=== PATIENT | female | born 1945 | race Caucasian/White ===

== ENCOUNTER 2018-02-20 06:24 | Inpatient (IN) ==
--- NOTE | 2018-02-19 16:55 | Discharge Summary ---
Date of Encounter: 02/23/18 Time of Encounter: 12:40 - Discharge Diagnosis (1) Rotator cuff arthropathy Priority: Primary Status: Chronic Qualifiers: Laterality: right Qualified Code(s): M12.811 - Other specific arthropathies, not elsewhere classified, right shoulder (2) Osteoarthritis of right shoulder Priority: Primary Status: Chronic Qualifiers: Osteoarthritis type: unspecified Qualified Code(s): M19.011 - Primary osteoarthritis, right shoulder (3) Status post reverse arthroplasty of right shoulder Priority: Primary Status: Acute (4) HTN (hypertension) Priority: Secondary Status: Chronic Qualifiers: Hypertension type: unspecified Qualified Code(s): I10 - Essential (primary) hypertension (5) Anemia Priority: Secondary Status: Chronic Qualifiers: Anemia type: unspecified type Qualified Code(s): D64.9 - Anemia, unspecified (6) Gout Priority: Secondary Status: Chronic Qualifiers: Gout site: unspecified site Gout etiology: unspecified cause Chronicity: unspecified Qualified Code(s): M10.9 - Gout, unspecified (7) Breast cancer Priority: Secondary Status: Chronic Qualifiers: Breast location: unspecified site of breast Estrogen receptor status: unspecified Patient sex: female Laterality: unspecified laterality Qualified Code(s): C50.919 - Malignant neoplasm of unspecified site of unspecified female breast (8) Barretts esophagus Priority: Secondary Status: Chronic Qualifiers: Hastings's esophagus type: with dysplasia of unspecified degree Qualified Code(s): K22.719 - Hastings's esophagus with dysplasia, unspecified; K22.71 - Hastings's esophagus with dysplasia (9) Asthma Priority: Secondary Status: Chronic Qualifiers: Asthma severity: unspecified severity Asthma persistence: unspecified Asthma complication type: unspecified Qualified Code(s): J45.909 - Unspecified asthma, uncomplicated (10) Osteoporosis Priority: Secondary Status: Chronic Qualifiers: Osteoporosis type: unspecified Presence of current pathological fracture: unspecified Qualified Code(s): M81.0 - Age-related osteoporosis without current pathological fracture - Hospital Course Hospital course: Ms. Lazo is a 73 year old female POD#4 Date of procedure: 02/20/18 Pre-op diagnosis: Right shoulder cuff tear arthropathy Post-op diagnosis: same Procedure: Total Shoulder Replacment Reverse, right Patient progressed well. Patient discharged to inpt rehab. - Time Spent with Patient Total time spent providing and/or coordinating discharge services: - Discharge Medications Home Medications: Allopurinol [Zyloprim 300 MG] 300 mg PO DAILY 03/27/15 [History] Gabapentin [Neurontin] 300 tab PO TID 03/27/15 [History] Omeprazole [PriLOSEC] 20 mg PO DAILY 03/27/15 [History] Albuterol Sulfate [Albuterol Inhaler] 90 mcg IH Q4HR PRN 04/08/15 [History] Loratadine [Allergy Relief] 10 mg PO DAILY PRN 06/28/16 [History] Cholecalciferol (D-3) [Vitamin D] 5,000 unit PO DAILY 08/15/17 [History] Docusate Sodium [Colace] 100 mg PO BID 5 Days #10 capsule 02/20/18 [Rx] FLUoxetine HCl [Fluoxetine HCl] 10 mg PO DAILY 02/20/18 [History] Lisinopril/Hydrochlorothiazide [Zestoretic 20-25 mg Tablet] 1 tab PO DAILY 02/20/18 [History] OxyCODONE Immed Rel [Roxicodone 5 MG] 5 mg PO Q6HR PRN 7 Days #28 tablet 02/20/18 [Rx] Tramadol HCl [Ultram] 50 tab PO BID PRN 02/20/18 [History] Allergies/Adverse Reactions: Allergy/AdvReac Type Severity Reaction Status Date / Time No Known Allergies Allergy Verified 02/20/18 07:40 Date of admission: 02/20/18 Primary care physician: Alexa Morgan MD Discharging clinician: Ronald Jameson Anticipated date of discharge: 02/23/18 - VTE Documentation of Mechanical Device: Venous foot pump, device - Patient Status Disposition: Transfer SNF Condition: Fair Functional capacity at discharge: independent ambulation Overall status at discharge: patient is progressing back to baseline - Discharge Instructions Follow Up With: Alexa Morgan MD [Primary Care Provider] - Additional Instructions: Discharge Instructions: Total Shoulder Please call [facility] ([phone]), your Primary Care Physician, or report to the Emergency Room if you have any of the following symptoms: Nausea, vomiting, fever greater that 101.5, swelling, chest pain, shortness of breath, increased pain/redness/drainage/odor for your incision site, numbness/tingling, or any other concerning symptoms. ACTIVITY: Always keep your arm in the sling. Do not raise your arm away from your body. Do not use your arm to help with getting in or out of bed. No weight bearing permitted. Only perform those exercises given to you by your therapist. Incentive Spirometer 10 times an hour. MEDICATIONS: Upon discharge resume your home medications. Take all the medications as prescribed. Take a stool softener if taking narcotic pain medications. Stool softeners are only effective if you drink enough fluids. Drink 6-8 glass of water or fluids a day, unless this is not allowed for another health problem. Despite using stool softeners, if you haven't had a bowel movement in 3 days, please switch to a gentle laxative. Gentle laxatives are sold over the counter. You should have a bowel movement within 24 hours, if not call the office. You will be discharged from the hospital with a prescription for pain medication. You are encouraged to decrease the use of narcotic pain medication as tolerated. Should you require a refill, please call the office. [facility] prescribes narcotic pain medication for only 4-6 weeks after surgery. If you require pain medication beyond this time period, you may be referred to your Primary Care Physician or to the Pain Clinic for further evaluation. Plan ahead for refills on pain medication as many narcotics either need to be picked up at the office or mailed. It is best to call 48-72 hours in advance of needing a prescription refill so you don't run out of medication. To help control the post-operative pain, you may take NSAIDs (Aleve,Advil, Motrin, Ibuprofen, Naprosyn) or Tylenol as prescribed on the bottle in addition to the pain medication. WOUND CARE: Leave the dressing on for 7-10 days. You may change the dressing if it becomes saturated greater than 50%. Do not get the dressing wet at anytime. Wash your hands with antibacterial soap, rinse and dry prior to any wound care. If you have tori the visiting nurse or rehab facility can remove the stapes 10-14 days after surgery and place steri-strips across the wound. Leave the steri-strips in place until they fall off on their own. You may let water from the shower run on top of the steri-strips. If you do not have a visiting nurse or rehab facility, you will need to return to the office at 10-14 days for the tori to be removed. If you have itching or redness around the dressing call the office. FOLLOW-UP: Please follow up with your surgeon in the orthopedic clinic, as scheduled - Diet and Activity Activity: as per physical therapy Diet: advance to your usual diet
--- NOTE | 2018-02-20 06:42 | History & Physical Report ---
Date of Encounter: 02/20/18 Time of Encounter: 06:41 24 Hour HP Update - Instructions Instructions: If the History and Physical is less than 30 days old and was completed prior to A.M. admission and or procedure and has NOT been updated on calendar day of procedure please complete this update prior to performing procedure. - Update Patient reports changes in Medical Condition: No Changes in examination, assessment, or condition: No Changes in Medication: No Preop tests/diagnostics Reviewed: Yes Surgery Remains Indicated: Yes Consent for Planned Operative Procedure(s) Verified: Yes - Pre-Operative Checklist Preoperative Checklist Indicated: No Prophylactic Antibiotic Ordered: Yes Is VTE Prophylaxis Indicated?: Yes
[2018-02-20] MEDS ORDERED: Ethanol\\Acetic Acid\\Na Ace\\Ben 1,000 ML IRRIG.SOLN IR ONE (06:53)
[2018-02-20] MEDS ORDERED: CeFAZolin Syr 2,000MG/20 ML 2,000 MG/20 ML SYRINGE IVPB ONE (07:01)
[2018-02-20] MEDS ORDERED: Albuterol 2.5 MG/3 ML NEBULIZER IH ONE (07:01)
[2018-02-20] MEDS ORDERED: Acetaminophen IV 1,000 MG/100 ML INFUS..BTL ONE (07:23)
[2018-02-20] MEDS ORDERED: ROPIVACAINE HCL/PF 0.5% 30 ML VIAL ONE (07:23)
[2018-02-20] MEDS ORDERED: KETAMINE HCL 50 MG/ML SYRINGE IV ONE (07:23)
[2018-02-20] MEDS ORDERED: *HR* Propofol 200 MG/20 ML VIAL IVP ONE (07:29)
[2018-02-20] MEDS ORDERED: *HR* Succinylcholine 200 MG/10 ML VIAL IVP ONE (07:30)
[2018-02-20] MEDS ORDERED: Ondansetron 4 MG/2 ML VIAL IVP ONE (07:31)
[2018-02-20] MEDS ORDERED: *HR* Promethazine 25 MG/ML VIAL IVP PRN (07:31)
[2018-02-20] MEDS ORDERED: *HR* Meperidine 25 MG/ML SYRINGE IVP PRN (07:31)
[2018-02-20] MEDS ORDERED: *HR* OxyCODONE Immed Rel 5 MG TABLET PO PRN (07:31)
[2018-02-20] MEDS: Ringers Solution, Lactated 1,000 ML IVC SCH ×3 (07:34→11:41)
--- NOTE | 2018-02-20 07:42 | Anesthesia Evaluation PreOp ---
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 History: Other (depression) Other Medical History: Other (newsome's L breast ca) Anesthesia History: No Prior Anesthetic Complications, Past Anesthesia (knee replacement) Alcohol Use: none Drug use: none Medications and Allergies Allopurinol [Zyloprim 300 MG] 300 mg PO DAILY 03/27/15 [History] Ferrous Sulfate 325 mg PO DAILY 03/27/15 [History] Gabapentin [Neurontin] 300 tab PO HS 03/27/15 [History] Omeprazole [PriLOSEC] 20 mg PO DAILY 03/27/15 [History] Albuterol Sulfate [Albuterol Inhaler] 90 mcg IH Q4HR PRN 04/08/15 [History] FLUoxetine HCl [PROzac] 20 mg PO DAILY 04/08/15 [History] Loratadine [Allergy Relief] 10 mg PO DAILY PRN 06/28/16 [History] Ibuprofen [Motrin] 400 mg PO Q6HR PRN 04/08/17 [History] Lisinopril-HCTZ 10-12.5 [Prinzide 10-12.5] 0.5 tab PO DAILY 04/08/17 [History] Letrozole [Femara] 2.5 mg PO DAILY #30 tablet 08/11/17 [Rx] Cholecalciferol (D-3) [Vitamin D] 5,000 unit PO DAILY 08/15/17 [History] Tramadol HCl [Ultram] 1 - 2 tab PO TID PRN 30 Days #180 tablet 11/11/17 [Rx] Allergy/AdvReac Type Severity Reaction Status Date / Time No Known Allergies Allergy Verified 02/20/18 07:40 - Meds/Allergy Pre-op Review Medications Reviewed: Yes Allergies Reviewed: Yes Beta Blockers on Current Med List: No Anesthesia Results - Labs Laboratory Tests 11/23/17 02/16/18 02/16/18 08:14 11:42 11:42 WBC 9.5 Hgb 14.2 Hct 43.5 Plt Count 235 PT 11.4 INR 1.0 APTT 31.7 Sodium Potassium Chloride Carbon Dioxide BUN Creatinine Glucose 91 02/16/18 11:42 WBC Hgb Hct Plt Count PT INR APTT Sodium 138 Potassium 3.7 Chloride 100 Carbon Dioxide 28 BUN 26 H Creatinine 0.91 Glucose - Imaging EKG: report reviewed ( Interpretive Statements SINUS RHYTHM WITH SINUS ARRHYTHMIA Electronically Signed On 02-17-2018 9:19:47 EST by Gunner Ray) Anesthesia Exam O2 Sat Height 1.5 m Height 1.5 m Weight 77.564 kg Weight 77.564 kg O2 Sat by Pulse Oximetry 92 O2 Sat by Pulse Oximetry 92 O2 Sat by Pulse Oximetry 92 Vital Signs Temp Pulse Resp BP Pulse Ox 98.0 F 108 18 130/98 92 02/20/18 06:43 02/20/18 06:43 02/20/18 06:43 02/20/18 06:43 02/20/18 06:43 Weight: 77kg NPO (# of Hours): >8 - HEENT Pupil (Motor): Pupils equal, EOMI Mallampati: III (overbite) Teeth: Normal Oral Opening: Greater than 3 - 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
[2018-02-20] MEDS ORDERED: Ringers Solution, Lactated 1,000 ML IVC SCH (07:45)
[2018-02-20] MEDS ORDERED: Tranexamic Acid 1,000 MG/10 ML VIAL ONE (08:16)
[2018-02-20] MEDS ORDERED: Dexamethasone 4 MG/ML VIAL ONE (08:19)
[2018-02-20] MEDS ORDERED: Ondansetron 4 MG/2 ML VIAL ONE (08:19)
[2018-02-20] MEDS ORDERED: *HR* PHENYLEPHRINE 1,000 MCG/10 ML SYRINGE IVP ONE (08:24)
--- NOTE | 2018-02-20 08:30 | Anesthesia Procedures ---
Date of Encounter: 02/20/18 Time of Encounter: 07:55 Procedures: Anesthesia - Nerve Block Procedure Date: 02/20/18 Time: 07:55 Allergies/Adv Reactions: nka Pre-op Diagnosis: right shoulder rc arthropathy Surgical Procedure: right rev TSA Checklist: Correct Patient Identifier, Correct procedure, History checked Correct side: Right Blood Thinner: No Monitor Applied: EKG, BP, Pulse Oximetry Supplemental Oxygen via Nasal Cannula (L/min): 8 (FM) Indication: Post Op Analgesia Pre-op Neuro Deficits: No Block Type: Supraclavicular Catheter placed: No Sterile Technique: Yes Ultrasound used: Yes Anatomy identified: Yes Visual spread of Local: Yes Neuro Stimulation: Yes Nerve Stimulator Range: 0.2 - 0.4 mA Blood on Needle Aspiration: No Smooth Injection of Local: Yes Pain with Injection of Local: No Prep: Chlorhexadine Needle: 22 x 50 mm Stimuplex (echogenic) Local: Ropivacaine, Other (decadron 8mg) Volume (cc): 30 Number of Attempts: 1 Complications: None/effective block Vitals: Vital Signs/O2 Sat/Glucose, Most Recent Temp Pulse Resp BP Pulse Ox 98.0 F 111 18 154/108 100 02/20/18 07:23 02/20/18 08:00 02/20/18 07:23 02/20/18 08:00 02/20/18 08:00 Comments: propofol 50mg
--- NOTE | 2018-02-20 08:53 | Orthopedic Operative Note ---
Date of procedure: 02/20/18 Pre-op diagnosis: Right shoulder cuff tear arthropathy Post-op diagnosis: same Procedure: Procedure: Total Shoulder Replacment Reverse, right Estimated blood loss: 50 cc Hardware: Metal and polyethylene replacement: Arthrex 24, +2 , 25 mm screw glenoid baseplate, 4 locking 5.5 screw, 36+4 glenosphere, 8 apex humeral stem, poly insert 3 Exam Under anesthesia: Full motion no instability Procedural Notes: Irreparable tear rotator cuff Operative procedure: The patient was brought to the operating room and placed on the operating room table. After general anesthesia was administered the operative shoulder was examined. Findings were noted. The patient was placed in the modified beachchair position. All pressure points were padded appropriately. And the head was stabilized in the neutral position. The operative extremity was prepped and draped in the sterile surgical fashion. The patient received IV antibiotics prior to skin incision. A standard deltopectoral approach was made to the operative shoulder. Incision was made to the skin and subcutaneous tissue,hemo stasis was obtained with Bovie cautery. Using careful blunt dissection the cephalic vein was identified and mobilized medially. The deltopectoral interval was developed and the clavipectoral fascia was incised. The subscap was released off the lesser tuberosity and tagged with #2 FiberWire suture subscap was irreparable. The humerus was dislocated patient noted to have irreparable tear supraspinatus tendon, and the humeral cut was made along the anatomic neck. Anterior and posterior Bankart retractors were placed to expose the glenoid. The glenoid guide was seated and the centering hole was made. It was reamed with the appropriate reamer. The 24, +2, 25 mm screw baseplate was seated and secured with 4 locking 5.5 screw. The baseplate was irrigated and dried and the 36+4 Glenosphere was seated and secured with the José taper. The José taper was tested and found to be secure, glenosphere fixation was secondarily secured with the central screw. The humerus was redislocated and prepared with the diaphyseal reamers, followed by a broaching process up to the appropriate size 8 apex in the patient's anatomic version. The metaphyseal reamer was then utilized. Trial reduction found the shoulder to be relocatable. Trial components were removed and 8 apex. stem was impacted in place in the patient's anatomic version. Trial reduction found the shoulder to be relocatable and stable with the appropriate 3 Kat. Trial component was removed and the real implant was seated and secured the shoulder was reduced. The shoulder had excellent motion and excellent stability and no evidence of dislocation. The deep tissue was irrigated with pulse irrigation. The PA close the shoulder. The deltopectoral interval was closed with a running #1 PDS suture, subcutaneous tissue was irrigated and closed with 0 PDS suture, the skin was closed with Dermabond. The patient was placed in a sterile dressing, abduction brace and extubated. The patient was then transferred to the recovery room in stable condition. Anesthesia: GETA Surgeon: Ronald Jameson Was there an emergency room physician assistant present: Yes Dairy Frozen Manager: Johana Calderon Estimated blood loss (cc): 50 Condition: stable Disposition: PACU
[2018-02-20] MEDS: *HR* HYDROmorphone (PF) 1 MG/ML SYRINGE IVP PRN ×3 (09:33→09:53)
[2018-02-20 09:56] LABS: Hematocrit 37.8 % (35.3-44.9)
[2018-02-20 09:59] LABS: Hemoglobin 12.4 g/dL (11.5-15.4)
--- NOTE | 2018-02-20 10:06 | Anesthesia Evaluation Post Op ---
Date of Encounter: 02/20/18 Time of Encounter: 10:05 - Vital Signs Vital Signs: Selected Entries 02/20/18 09:40 02/20/18 09:50 Temperature 97.7 F Pulse Rate 103 Respiratory Rate 18 Blood Pressure 135/82 O2 Sat by Pulse Oximetry 94 - Lungs Lungs: Clear Ascult./Percussion - Airway Airway: Non-obstructed - Cardiovascular Regular Rate - Mental Status Mental Status: Alert & Oriented, Answers Appropriately - Pain Pain Scale: 3 Pain Scale used: Numeric (1 - 10) - Nausea Vomiting Nausea Vomiting: Not Present - Hydration Hydration: Tolerates oral liquids - Discharge PostOp Status: Transfer Patient to floor
[2018-02-20] MEDS ORDERED: traMADol 50 MG TABLET PO PRN (10:55)
[2018-02-20] MEDS ORDERED: Naloxone 0.4 MG/ML INJ IVP PRN (10:55)
[2018-02-20] MEDS ORDERED: MOM Conc 10 ML UD.LIQ PO PRN (10:55)
[2018-02-20] MEDS ORDERED: Ondansetron 4 MG/2 ML VIAL IVP PRN (10:55)
[2018-02-20] MEDS ORDERED: Sennosides 8.6 MG TABLET PO PRN (10:55)
[2018-02-20] MEDS ORDERED: Loratadine 10 MG TABLET PO PRN (10:55)
[2018-02-20] MEDS ORDERED: Temazepam 15 MG CAPSULE PO PRN (10:55)
[2018-02-20] MEDS: Cholecalciferol (D-3) 1,000 UNIT TABLET PO SCH (11:37)
[2018-02-20] MEDS: Gabapentin 300 MG CAPSULE PO SCH ×3 (11:37→20:27)
[2018-02-20] MEDS: Letrozole 2.5 MG TABLET PO SCH (15:21)
[2018-02-20] MEDS: FLUoxetine HCl 10 MG CAPSULE PO SCH (15:21)
[2018-02-20] MEDS: *HR* Enoxaparin 30 MG/0.3 ML SYRINGE SQ SCH (17:32)
[2018-02-20] MEDS ORDERED: *HR* Enoxaparin 30 MG/0.3 ML SYRINGE SQ SCH (18:00)
[2018-02-20] MEDS ORDERED: *HR* Metoprolol 5 MG/5 ML VIAL IVP ONE ×2 (18:53→18:57)
[2018-02-21] MEDS: *HR* OxyCODONE Immed Rel 5 MG TABLET PO PRN ×2 (04:17→09:48)
[2018-02-21] MEDS: *HR* Enoxaparin 30 MG/0.3 ML SYRINGE SQ SCH ×2 (05:21→17:58)
[2018-02-21 07:11] LABS: Hemoglobin 11.8 g/dL (11.5-15.4)
[2018-02-21 07:23] LABS: BUN/Creatinine Ratio 29 (6-26); Blood Urea Nitrogen 24 mg/dL (8-23); Calcium 9.2 mg/dL (8.6-10.3); Carbon Dioxide 29 mEq/L (23-29); Chloride 102 mEq/L (98-107); Glucose 128 mg/dL (70-105); Osmolality,Calculated 292 (280-300); Potassium 3.9 mEq/L (3.5-5.1); Sodium 138 mEq/L (136-145); eGFR For Non-African Americans > 60 (> 60)
[2018-02-21] MEDS: Cholecalciferol (D-3) 1,000 UNIT TABLET PO SCH (09:48)
[2018-02-21] MEDS: Gabapentin 300 MG CAPSULE PO SCH ×3 (09:48→21:05)
[2018-02-21] MEDS: Letrozole 2.5 MG TABLET PO SCH (09:48)
[2018-02-21] MEDS: FLUoxetine HCl 10 MG CAPSULE PO SCH (09:48)
--- NOTE | 2018-02-21 14:10 | Orthopedics Progress Note ---
Date of Encounter: 02/21/18 Time of Encounter: 14:07 Subjective Principal diagnosis: Right total shoulder arthroplasty Interval history: Patient is reporting moderate pain Patient also reports that she is unable to take care of herself at home and would like to be referred to [facility] Physical exam: Right shoulder dressings are clean dry intact, sling in place. Patient has good motion of digits, with no swelling, no numbness or tingling. Radial pulse 2+ Assessment: Postoperative day #1 status post right total shoulder arthroplasty. Stable. Significant pain Plan: Continue analgesics We will have certified social workers in health care involvement for possible inpatient rehabilitation at [facility] Objective Vital signs: Vital Signs Temp Pulse Resp BP Pulse Ox 02/21/18 10:58 98.1 F 102 20 125/72 95 02/21/18 06:23 97.6 F 97 18 143/98 99 02/21/18 04:35 97.9 F 94 15 139/93 97 02/20/18 22:34 97.9 F 98 16 138/90 96 02/20/18 20:28 96 02/20/18 19:04 98.1 F 170 14 103/73 95 02/20/18 14:32 98.2 F 106 15 106/71 94 Intake and Output 02/20/18 02/21/18 02/21/18 23:59 07:59 15:59 Intake Total 100 / 100 1050 / 1050 420 / 420 Output Total 500 / 500 Balance 100 / 100 550 / 550 420 / 420 Intake: IV Fluids 100 / 100 1050 / 1050 Lactated Ringers 1,000 ML @ 75 950 / 950 mls/hr IVC .[id number] ISAI Rx#: [id number] Ancef 2,000 MG In 0.9 % Sodium 100 / 100 100 / 100 Chloride 100 ML @ 200 mls/hr IVPB Q8HR ISAI Rx#:[id number] Oral 420 / 420 Output: Urine 500 / 500 Other: Meal Lunch Percent of Meal Consumed 50% # Voids 1 Weight 78.6 kg Patient Weight 02/21/18 23:59 Weight 78.6 kg - Labs CBC & BMP: 02/21/18 06:08 02/21/18 06:08 Labs: Abnormal lab results BUN 24 mg/dL (8-23) H 02/21/18 06:08 BUN/Creatinine Ratio 29 (6-26) H 02/21/18 06:08 Glucose 128 mg/dL (70-105) H 02/21/18 06:08 - VTE Documentation of Mechanical Device: Intermittent pneumatic compression device Consult Discharge Plan - Plan Referrals: Alexa Morgan MD [Primary Care Provider] -
[2018-02-21] MEDS: *HR* OxyCODONE/APAP 5/325 TABLET PO PRN ×2 (15:13→21:05)
[2018-02-22] MEDS: *HR* OxyCODONE/APAP 5/325 TABLET PO PRN ×3 (03:23→12:30)
[2018-02-22] MEDS: *HR* Enoxaparin 30 MG/0.3 ML SYRINGE SQ SCH ×2 (05:37→18:17)
--- NOTE | 2018-02-22 06:17 | Orthopedics Progress Note ---
Date of Encounter: 02/22/18 Time of Encounter: 06:17 Subjective Principal diagnosis: Right total shoulder arthroplasty Interval history: Patient was seen this morning doing well without complaints. Afebrile vital signs stable. Operative extremity: Neurovascularly intact Dressing clean dry and intact Calves nontender Assessment and plan: Continue with postoperative care Plan for discharge today Objective Vital signs: Vital Signs Temp Pulse Resp BP Pulse Ox 02/22/18 03:05 97.7 F 104 14 126/73 96 02/21/18 23:37 98.1 F 99 16 118/80 96 02/21/18 19:44 97.7 F 104 14 133/73 93 02/21/18 15:18 97.9 F 102 16 120/80 91 02/21/18 10:58 98.1 F 102 20 125/72 95 02/21/18 06:23 97.6 F 97 18 143/98 99 Intake and Output 02/21/18 02/21/18 02/22/18 15:59 23:59 07:59 Intake Total 420 / 420 0 / 0 0 / 0 Balance 420 / 420 0 / 0 0 / 0 Intake: Oral 420 / 420 0 / 0 0 / 0 Other: Meal Lunch Percent of Meal Consumed 50% # Voids 2 1 1 Weight 78.74 kg Patient Weight 02/22/18 23:59 Weight 78.74 kg - Labs CBC & BMP: 02/21/18 06:08 02/21/18 06:08 Labs: Abnormal lab results BUN 24 mg/dL (8-23) H 02/21/18 06:08 BUN/Creatinine Ratio 29 (6-26) H 02/21/18 06:08 Glucose 128 mg/dL (70-105) H 02/21/18 06:08 - VTE Documentation of Mechanical Device: Intermittent pneumatic compression device Consult Discharge Plan - Plan Referrals: Alexa Morgan MD [Primary Care Provider] -
[2018-02-22] MEDS: Letrozole 2.5 MG TABLET PO SCH (07:44)
[2018-02-22] MEDS: Gabapentin 300 MG CAPSULE PO SCH ×3 (07:44→19:49)
[2018-02-22] MEDS: Cholecalciferol (D-3) 1,000 UNIT TABLET PO SCH (07:44)
[2018-02-22] MEDS: FLUoxetine HCl 10 MG CAPSULE PO SCH (07:44)
[2018-02-22 07:54] LABS: Hematocrit 38.8 % (35.3-44.9); Hemoglobin 12.5 g/dL (11.5-15.4)
[2018-02-22 08:07] LABS: BUN/Creatinine Ratio 30 (6-26); Blood Urea Nitrogen 23 mg/dL (8-23); Calcium 9.2 mg/dL (8.6-10.3); Carbon Dioxide 32 mEq/L (23-29); Chloride 102 mEq/L (98-107); Glucose 91 mg/dL (70-105); Osmolality,Calculated 293 (280-300); Potassium 3.6 mEq/L (3.5-5.1); Sodium 140 mEq/L (136-145); eGFR For Non-African Americans > 60 (> 60)
--- NOTE | 2018-02-22 12:00 | Event Note ---
Date of Encounter: 02/22/18 Time of Encounter: 11:30 PCR- POD#2 PCR - Patient seen at bedside. Family at bedside. A&Ox3 Dressing and incision c/d/i Zipline intact No calf tenderness, erythema, or warmth. Neurovascularly intact b/l LE. Labwork and medications reviewed. Pain control: Adequate Participating in PT. All questions and concerns addressed. Educated on use of incentive spirometer, ambulation, and hydration. Patient educated on post-operative restrictions and care. Addressed: see above. D/C plan: [facility] tomorrow
--- NOTE | 2018-02-22 12:00 | Physician Discharge Referral ---
ExtendedCare Referral Info Transfer To: In Rehab Provider in Charge: Dr. Ronald Jameson - Diagnosis (1) Rotator cuff arthropathy Priority: Primary Status: Chronic (2) Osteoarthritis of right shoulder Priority: Primary Status: Chronic (3) Status post reverse arthroplasty of right shoulder Priority: Primary Status: Acute (4) HTN (hypertension) Priority: Secondary Status: Chronic (5) Anemia Priority: Secondary Status: Chronic (6) Gout Priority: Secondary Status: Chronic (7) Breast cancer Priority: Secondary Status: Chronic (8) Barretts esophagus Priority: Secondary Status: Chronic (9) Asthma Priority: Secondary Status: Chronic (10) Osteoporosis Priority: Secondary Status: Chronic Expected Duration of Placement: less than 30 days Prognosis: Good Aware of Diagnosis: Patient, Family Aware of Prognosis: Patient, Family - Transfer Medications Home Medications: Allopurinol [Zyloprim 300 MG] 300 mg PO DAILY 03/27/15 [History] Gabapentin [Neurontin] 300 tab PO TID 03/27/15 [History] RX: Omeprazole [PriLOSEC] 20 mg PO DAILY 03/27/15 [History] Albuterol Sulfate [Albuterol Inhaler] 90 mcg IH Q4HR PRN 04/08/15 [History] Loratadine [Allergy Relief] 10 mg PO DAILY PRN 06/28/16 [History] RX: Letrozole [Femara] 2.5 mg PO DAILY #30 tablet 08/11/17 [Rx] Cholecalciferol (D-3) [Vitamin D] 5,000 unit PO DAILY 08/15/17 [History] FLUoxetine HCl [Fluoxetine HCl] 10 mg PO DAILY 02/20/18 [History] Lisinopril/Hydrochlorothiazide [Zestoretic 20-25 mg Tablet] 1 tab PO DAILY 1 [History] RX: Docusate Sodium [Colace] 100 mg PO BID 5 Days #10 capsule 02/20/18 [Rx] RX: OxyCODONE Immed Rel [Roxicodone 5 MG] 5 mg PO Q6HR PRN 7 Days #28 tablet 02/20/18 [Rx] RX: Tramadol HCl [Ultram] 50 tab PO BID PRN 02/20/18 [History] Allergies/Adverse Reactions: Allergy/AdvReac Type Severity Reaction Status Date / Time No Known Allergies Allergy Verified 02/20/18 07:40 - Respiratory Orders Smoking Cessation: Smoking cessation has been advised. For more information, call the [place] Tobacco Quit Line at 3-004-CHBX-NOW. - Ancillary Orders May use pressure relief devices daily prn, May go on RAISSA w/family/respon republican w/meds at nurse discretion PRN, May consult with Dentist, Monomer Purification Operator, Sales Development Representative PRN - Mobility Orders Chair, Ambulate - Rehabiliation Orders Rehab Potential: Good Rehab Orders: Evaluation for Physical Therapy, Evaluation for Occupational Therapy Other: PT/OT. NWB to affected upper extremity. Follow Shoulder Precautions x 6 weeks. Stay in brace during activity and at night. Remove brace during exercises. ICE and elevate extremity frequently throughout the day. - Treatments Skin tear care topically daily PRN per policy List/Other: Opsite placed. Keep dressing intact until first follow up appointment. If greater than 50% saturated, notify office, remove dressing and place appropriate dressing back in place. Leave Zipline intact. Opsite dressing is water resistant, not water-proof. OK to shower, but do not get dressing wet. - Diet Orders Regular CERTIFICATION: I certify that the transfer of the above named patient to an Extended Care Facility is necessary for the continuing treatment of the diagnosis listed. The above information is true and accurate reflection of patient's current condition. Confidential - Redisclosure prohibited without a patient's written consent.
[2018-02-22] MEDS: *HR* OxyCODONE Immed Rel 5 MG TABLET PO PRN (18:17)
[2018-02-22] MEDS: Ringers Solution, Lactated 1,000 ML IVC SCH ×2 (19:46→19:47)
[2018-02-23] MEDS: *HR* Enoxaparin 30 MG/0.3 ML SYRINGE SQ SCH (05:44)
--- NOTE | 2018-02-23 08:34 | Orthopedics Progress Note ---
Date of Encounter: 02/23/18 Time of Encounter: 08:34 Subjective Principal diagnosis: Right total shoulder arthroplasty Interval history: Patient was seen this morning doing well without complaints. Afebrile vital signs stable. Operative extremity: Neurovascularly intact Dressing clean dry and intact Calves nontender Assessment and plan: Continue with postoperative care Plan for discharge today Objective Vital signs: Vital Signs Temp Pulse Resp BP Pulse Ox 02/23/18 06:38 98.9 F 103 14 126/81 94 02/23/18 03:36 98.3 F 106 15 136/93 94 02/22/18 23:00 98.1 F 112 16 132/82 90 02/22/18 19:56 90 02/22/18 18:23 97.5 F L 110 14 115/76 90 02/22/18 15:40 98.5 F 64 16 115/68 93 02/22/18 10:52 98.2 F 98 16 105/69 93 Intake and Output 02/22/18 02/23/18 02/23/18 23:59 07:59 15:59 Intake Total 100 / 100 400 / 400 Balance 100 / 100 400 / 400 Intake: Oral 100 / 100 400 / 400 Other: Meal Dinner Percent of Meal Consumed 75% Stool Size Small Stool Consistency loose # Voids 1 1 Weight 80.1 kg Patient Weight 02/23/18 23:59 Weight 80.1 kg - Labs CBC & BMP: 02/22/18 07:11 02/22/18 07:11 Labs: Abnormal lab results Carbon Dioxide 32 mEq/L (23-29) H 02/22/18 07:11 BUN/Creatinine Ratio 30 (6-26) H 02/22/18 07:11 - VTE Documentation of Mechanical Device: Intermittent pneumatic compression device Consult Discharge Plan - Plan Referrals: Alexa Morgan MD [Primary Care Provider] -
[2018-02-23] MEDS: FLUoxetine HCl 10 MG CAPSULE PO SCH (08:49)
[2018-02-23] MEDS: Cholecalciferol (D-3) 1,000 UNIT TABLET PO SCH (08:49)
[2018-02-23] MEDS: Letrozole 2.5 MG TABLET PO SCH (08:49)
[2018-02-23] MEDS: Gabapentin 300 MG CAPSULE PO SCH (08:49)
[2018-02-23] MEDS: *HR* OxyCODONE Immed Rel 5 MG TABLET PO PRN (08:49)
[2018-02-23 11:42] LABS: Hemoglobin 11.6 g/dL (11.5-15.4)
[2018-02-23 11:45] VITALS: BP 107/76
[2018-02-23 12:03] LABS: BUN/Creatinine Ratio 32 (6-26); Blood Urea Nitrogen 22 mg/dL (8-23); Calcium 9.2 mg/dL (8.6-10.3); Carbon Dioxide 30 mEq/L (23-29); Chloride 100 mEq/L (98-107); Glucose 107 mg/dL (70-105); Osmolality,Calculated 288 (280-300); Potassium 3.4 mEq/L (3.5-5.1); Sodium 137 mEq/L (136-145); eGFR For Non-African Americans > 60 (> 60)
== END 2018-02-23 13:36 | DRG 483 ==
LOC: SAMDAY 06:24 → 3NENU 10:49
PROVIDERS: ADMIT Orthopaedic Surgery; ATTEND Orthopaedic Surgery

== ENCOUNTER 2018-08-14 06:20 | Inpatient (IN) ==
[2018-08-14] MEDS ORDERED: Albuterol 2.5 MG/3 ML NEBULIZER IH ONE (06:49)
[2018-08-14] MEDS ORDERED: CeFAZolin Syr 2,000MG/20 ML 2,000 MG/20 ML SYRINGE IVPB ONE (06:49)
--- NOTE | 2018-08-14 06:51 | History & Physical Report ---
Date of Encounter: 08/14/18 Time of Encounter: 06:51 24 Hour HP Update - Instructions Instructions: If the History and Physical is less than 30 days old and was completed prior to A.M. admission and or procedure and has NOT been updated on calendar day of procedure please complete this update prior to performing procedure. - Update Patient reports changes in Medical Condition: No Changes in examination, assessment, or condition: No Changes in Medication: No Preop tests/diagnostics Reviewed: Yes Surgery Remains Indicated: Yes Consent for Planned Operative Procedure(s) Verified: Yes - Pre-Operative Checklist Preoperative Checklist Indicated: No Prophylactic Antibiotic Ordered: Yes Is VTE Prophylaxis Indicated?: Yes
[2018-08-14] MEDS ORDERED: Ringers Solution, Lactated 1,000 ML IVC SCH ×2 (07:00→12:07)
[2018-08-14] MEDS ORDERED: *HR* Propofol 200 MG/20 ML VIAL IVP ONE (07:03)
[2018-08-14] MEDS ORDERED: *HR* FentaNYL (PF) 100 MCG/2 ML VIAL ONE (07:03)
[2018-08-14] MEDS ORDERED: *HR* Midazolam HCl 2 MG/2 ML VIAL ONE ×2 (07:04→08:55)
[2018-08-14] MEDS ORDERED: Ondansetron 4 MG/2 ML VIAL ONE (07:04)
[2018-08-14] MEDS ORDERED: Lidocaine -MPF 2% 2 ML VIAL ONE (07:04)
[2018-08-14] MEDS ORDERED: Lidocaine -MPF 4% 5 ML AMPUL ONE (07:04)
[2018-08-14] MEDS ORDERED: Dexamethasone 4 MG/ML VIAL ONE (07:04)
[2018-08-14] MEDS ORDERED: *HR* Succinylcholine 200 MG/10 ML VIAL IVP ONE (07:04)
[2018-08-14] MEDS ORDERED: *HR* Rocuronium Bromide 50 MG/5 ML VIAL ONE (07:04)
[2018-08-14] MEDS ORDERED: Ethanol\\Acetic Acid\\Na Ace\\Ben 1,000 ML IRRIG.SOLN IR ONE (07:24)
[2018-08-14] MEDS ORDERED: Lidocaine -MPF 1% 5 ML AMPUL ONE (07:26)
--- NOTE | 2018-08-14 07:28 | Anesthesia Evaluation PreOp ---
Date of Encounter: 08/14/18 Time of Encounter: 07:26 - Past History Planned Operation: Right total robotic hip Cardiac History: HTN, Arrhythmia (tachycardia) Pulmonary History: Denies Any Significant HX INSPECTOR CASING History: Denies Any Significant HX Other Medical History: GERD (s/p paraesophageal hernia repair; gets GERD periodically; Barretts), Other (hx left breast CA s/p lumpectomy and radiation) Anesthesia History: Problems (nausea) Alcohol Use: none Drug use: none Medications and Allergies Allopurinol [Zyloprim 300 MG] 300 mg PO DAILY 03/27/15 [History] Gabapentin [Neurontin] 300 tab PO BID 03/27/15 [History] Omeprazole [PriLOSEC] 20 mg PO DAILY 03/27/15 [History] FLUoxetine HCl [Fluoxetine HCl] 10 mg PO DAILY 02/20/18 [History] Calcium Carbonate [Calcium] 500 mg PO DAILY 03/24/18 [History] Ferrous Sulfate [Iron] 325 mg PO DAILY 03/24/18 [History] Atorvastatin [Lipitor] 40 mg PO HS 06/19/18 [History] Letrozole [Femara] 2.5 mg PO DAILY 06/19/18 [History] Diltiazem CD (24hr) [Cardizem CD] 120 mg PO DAILY 07/06/18 [History] Tramadol HCl [Ultram] 1 tab PO BID PRN 30 Days #60 tab 07/26/18 [Rx] Albuterol Sulfate [Albuterol Inhaler] 2 puff IH Q4HR PRN 08/14/18 [History] Cholecalciferol (D-3) [Vitamin D] 5,000 unit PO DAILY 08/14/18 [History] Lisinopril/Hydrochlorothiazide [Zestoretic 10-12.5 mg Tablet] 1 tab PO DAILY 08/14/18 [History] Magnesium Oxide [Magnesium] 400 mg PO DAILY 08/14/18 [History] Metoprolol XL (24 HR) Succ [Toprol Xl] 25 mg PO DAILY 08/14/18 [History] Allergy/AdvReac Type Severity Reaction Status Date / Time No Known Allergies Allergy Verified 08/14/18 07:05 - Meds/Allergy Pre-op Review Medications Reviewed: Yes Allergies Reviewed: Yes Beta Blockers on Current Med List: Yes (metoprolol) If Beta Blockers taken, Date/Time (Last Dose taken): 6-24-19 metoprolol 4:45 Anesthesia Results - Labs Laboratory Tests 07/26/18 07/26/18 07/31/18 07:40 07:40 14:02 WBC 8.4 Hgb 13.7 Hct 39.9 Plt Count 215 PT 11.8 INR 1.0 APTT 30.6 Sodium 136 Potassium 3.7 Chloride 100 Carbon Dioxide 28 BUN 21 Creatinine 0.78 Est GFR ( Amer) > 60 Est GFR (Non-Af Amer) > 60 BUN/Creatinine Ratio 27 H Glucose 103 Calculated Osmolality 285 Uric Acid 3.4 Calcium 10.1 - Imaging EKG: report reviewed, image reviewed (SINUS RHYTHM LOW QRS VOLTAGE IN PRECORDIAL LEADS [QRS DEFLECTION < 1.0 mV IN CHEST LEADS]) Additional studies: TTE: Impressions: LVEF 65%. Indeterminate diastolic function. Normal right ventricular structure and function. Mild mitral regurgitation. No pulmonary hypertension. Dilated proximal ascending thoracic aorta, 4.[address] imaging. Anesthesia Exam Last Vital Signs Temp 98.7 F 08/14/18 07:04 Pulse 77 08/14/18 07:04 Resp 18 08/14/18 07:04 BP 130/80 08/14/18 07:04 Pulse Ox 96 08/14/18 07:04 Weight: 76 kg NPO (# of Hours): > 8 hrs - HEENT Pupil (Motor): Pupils equal, EOMI Mallampati: III Teeth: Normal Oral Opening: Greater than 3 - INSPECTOR CASING LOC: Oriented - Cardiac Rhythm: Regular Murmur: None - Pulmonary Breath Sounds: bilateral Clear Respiratory Effort: Symmetrical Anesthesia Assess/Plan ASA Score: 3 Level of consciousness: Cooperative Anesthetic Plan: MAC, Spinal Monitoring Plan: Standard Monitors Recovery Plan: PACU
[2018-08-14] MEDS ORDERED: Propofol 500 MG/50 ML INFUS..BTL ONE (07:31)
[2018-08-14] MEDS ORDERED: *HR* OxyCODONE ER (12 HR) 10 MG TABLET PO ONE (07:32)
[2018-08-14] MEDS ORDERED: *HR* Phenylephrine 10 MG/ML VIAL ONE (07:38)
[2018-08-14] MEDS ORDERED: *HR* Adenosine 6 MG/2 ML VIAL IVP ONE ×2 (08:14)
[2018-08-14] MEDS ORDERED: Diltiazem CD (24hr) 120 MG CAPSULE PO SCH (09:00)
--- NOTE | 2018-08-14 09:39 | Anesthesia Procedures ---
Date of Encounter: 08/14/18 Time of Encounter: 09:10 Procedures: Anesthesia - Epidural/Spinal Patient ID/Chart reviewed: Yes Patient examined: Yes Consent Obtained: Yes Supplemental Oxygen: Nasal Cannula Supplemental Oxygen Rate (L/min): 3 Sedation: Versed (mg): 3 (Total Dose including dose from 0745) Sedation: Fentanyl (mcg): 100 (total dose including dose fom 0745) Site Prep: Aseptic Technique, Sterile prep and drape, 0.5% Chlorhexidine/Alcohol Patient position: upright Local Anesthetic: Lidocaine 1% Interspace Used: L3-L4 Blood: No CSF: Yes Paresthesia: No Spinal Needle Gauge: 22 Spinal Dose: Bupivacaine 0.5% 2ml per SRNA Vitals + FHT's: Vital Signs/O2 Sat/Glucose, Most Recent Temp Pulse Resp BP Pulse Ox 98.7 F 94 16 94/66 99 08/14/18 07:04 08/14/18 09:39 08/14/18 08:54 08/14/18 09:39 08/14/18 09:39 Blood Glucose* 97
[2018-08-14] MEDS ORDERED: EPHEDrine 50 MG/ML VIAL ONE (10:08)
[2018-08-14] MEDS ORDERED: *HR* Metoprolol 5 MG/5 ML VIAL IVP PRN (10:22)
[2018-08-14] MEDS ORDERED: *HR* OxyCODONE Immed Rel 5 MG TABLET PO PRN (10:22)
[2018-08-14] MEDS ORDERED: *HR* Vasopressin 20 UNIT/ML VIAL ONE (10:23)
--- NOTE | 2018-08-14 10:43 | Orthopedic Operative Note ---
Date of procedure: 08/14/18 Pre-op diagnosis: Right hip arthritis Post-op diagnosis: same Procedure: Procedure: Right Total Hip Replacment robotic-assisted Estimated blood loss: 200 cc Hardware: Metal and polyethylene replacement. [place] DM Cup: 46 cup Femoral size 3 anteverted anato stem Head:3 head with Kat 2 6.5 cancellus screws Procedural Notes: Grade 4 arthritic changes femoral head acetabular socket, procedure performed with robotic assistance. Operative leg 9 mm shorter than nonoperative as measured by preoperative CT scan. Operative procedure: The patient was brought to the operating room and placed on the operating room table. After general anesthesia was administered the patient was placed in the lateral decubitus position with the operative leg up. All pressure points were padded appropriately and the head was stabilized in the neutral position. The operative extremity was prepped and draped in the sterile surgical fashion patient received IV antibiotic prior to skin incision. 3 Steinmann pins were placed in the iliac crest 3 cm proximal to the anterior superior iliac spine this was for the robotic-assisted sensor. This was done through a small 2 cm incision. A standard posterior approach is made to the operative hip, the incision was made through the skin and subcutaneous tissue hemostasis was obtained with Bovie cautery. Using careful sharp dissection the fascia was identified and incised exposing the external rotators. The greater trochanter was marked, and length was measured at this time utilizing robotic assistance. The external rotators were released off the greater trochanter and tagged with #2 FiberWire suture. The capsule was T'd open and the hip was brought into internal rotation. Patient noted to have grade 4 arthritic changes femoral head. The femoral neck cut was made at the appropriate level roughly 15 mm proximal to the lesser trochanter aced on preoperative templating. An anterior capsulotomy was performed for the anterior retractor. Soft tissues removed from the acetabulum. Patient noted to have grade 4 arthritic changes acetabulum. The acetabulum reference point was confirmed. The acetabulum was then mapped with robotic assistance. Based on the preoperative plan the acetabulum was reamed in one step with a 46 reamer. The 46 acetabulum was impacted with robotic assistance and 40 degrees of abduction and 21 degrees of anteversion. The hip was brought back in to internal rotation and prepared with the wash box operator followed by the canal finder followed by the reaming process to a size 10 broaching process in 20 degrees anteversion. It was broached up to the appropriate size 7 Trial reduction revealed leg lengths close to normal. The femoral implant was impacted in place in 20 degrees of anteversion. Trial reduction found the hip to be stable with 3 head and Kat. The trials were removed and the real implants were impacted in place. The hip was reduced, patient had robotic confirmed leg length of 1 mm longer than the contralateral side. The hip had excellent stability with forward flexion to 90 degrees adduction of 30 degrees and internal rotation of 60 degrees. The hip had no shuck. The hip sat with an antibacterial solution. It was irrigated out with 2 L of pulse irrigation. The Steinmann pins were removed. The hip was closed by the PA. The deep tissue was irrigated and closed deep with #1 PDS suture superfi cially with 0 PDS suture and skin was closed with Dermabond and zip tie. The patient was placed in a sterile dressing and abduction pillow. The patient was extubated and transferred to the recovery room in stable condition. Anesthesia: spinal Surgeon: Ronald Jameson Was there an financial services assistant present: No Estimated blood loss (cc): 200 Condition: stable Disposition: PACU
[2018-08-14] MEDS ORDERED: Ondansetron 4 MG/2 ML VIAL IVP PRN (12:07)
[2018-08-14] MEDS ORDERED: Naloxone 0.4 MG/ML INJ IVP PRN (12:07)
[2018-08-14] MEDS ORDERED: *HR* Promethazine 25 MG/ML VIAL IVP PRN (12:07)
[2018-08-14] MEDS ORDERED: MOM Conc 10 ML UD.LIQ PO PRN (12:07)
[2018-08-14] MEDS ORDERED: Sennosides 8.6 MG TABLET PO PRN (12:07)
[2018-08-14 12:12] LABS: Hematocrit 30.6 % (35.3-44.9)
[2018-08-14] MEDS: HYDROcodone BIT/Homatropine 5 MG TABLET PO PRN ×2 (13:33→18:10)
[2018-08-14] MEDS: Ascorbic Acid 500 MG TABLET PO SCH ×2 (13:48→17:17)
[2018-08-14] MEDS: *HR* OxyCODONE Immed Rel 5 MG TABLET PO PRN ×2 (14:16→20:34)
[2018-08-14] MEDS: Multivit/Ca/Min/Fe/FA 1 TAB TABLET PO SCH (14:19)
[2018-08-14] MEDS: FLUoxetine HCl 10 MG CAPSULE PO SCH (14:19)
[2018-08-14] MEDS: Magnesium Oxide 400 MG TABLET PO SCH (14:22)
[2018-08-14] MEDS: Letrozole 2.5 MG TABLET PO SCH (14:23)
[2018-08-14] MEDS: Metoprolol XL (24 HR) Succ 25 MG TAB.ER.24H PO SCH (14:24)
[2018-08-14] MEDS: Cholecalciferol (D-3) 1,000 UNIT TABLET PO SCH (14:27)
[2018-08-14] MEDS: Gabapentin 300 MG CAPSULE PO SCH ×2 (14:27→20:34)
[2018-08-14] MEDS ORDERED: Ketorolac 15 MG/ML VIAL IVP ONE (15:05)
--- NOTE | 2018-08-14 15:30 | Anesthesia Evaluation Post Op ---
Date of Encounter: 08/14/18 Time of Encounter: 11:44 - Vital Signs Vital Signs: Vital Signs Temp Pulse Resp BP Pulse Ox 08/14/18 12:15 97.5 F L 65 16 109/67 94 08/14/18 12:02 98.3 F 66 16 104/73 96 08/14/18 11:52 68 16 104/72 94 08/14/18 11:42 98.1 F 71 16 101/49 96 08/14/18 11:32 70 16 93/55 96 08/14/18 11:22 72 16 90/61 97 08/14/18 11:12 98.8 F 76 14 110/86 99 08/14/18 09:50 78 148/101 100 08/14/18 09:39 94 94/66 99 08/14/18 09:29 99 126/70 97 08/14/18 09:03 90 145/93 96 08/14/18 08:54 88 16 131/89 99 08/14/18 08:44 90 16 143/90 97 08/14/18 08:34 88 18 145/92 99 08/14/18 08:28 89 18 150/93 98 08/14/18 08:26 96 18 160/102 99 08/14/18 08:23 151 18 147/105 99 08/14/18 07:53 160 156/128 97 08/14/18 07:04 98.7 F 77 18 130/80 96 08/14/18 06:51 98.7 F 77 18 130/80 96 Intake and Output 08/13/18 08/14/18 08/14/18 23:59 07:59 15:59 Intake Total 20 / 20 Output Total 200 / 200 Balance -180 / -180 Intake: IV Fluids 20 / 20 Ancef Syringe 2,000 MG/20 ML 2, 20 / 20 000 mg In 20 ml @ 200 mls/hr IVPB PREOP ONE Rx#:[id number] Output: Estimated Blood Loss 200 / 200 Other: Weight 76.204 kg Blood Glucose* 97 Patient Weight 08/14/18 23:59 Weight 76.204 kg - Lungs Lungs: Clear Ascult./Percussion - Airway Airway: Non-obstructed - Cardiovascular Regular Rate - Mental Status Mental Status: Alert & Oriented, Answers Appropriately - Pain Pain Scale: 0 Pain Scale used: Numeric (1 - 10) - Nausea Vomiting Nausea Vomiting: Not Present - Hydration Hydration: Ice chips - Discharge PostOp Status: Transfer Patient to floor Anes Supervising Prov Stmt: Pt seen/evaluated, R&B discussed questions answered and consent obtained. - MD Clau
[2018-08-14] MEDS: *HR* Enoxaparin 30 MG/0.3 ML SYRINGE SQ SCH (16:32)
[2018-08-14] MEDS ORDERED: *HR* Enoxaparin 30 MG/0.3 ML SYRINGE SQ SCH (18:00)
[2018-08-14] MEDS ORDERED: Temazepam 15 MG CAPSULE PO PRN (21:00)
[2018-08-15] MEDS: *HR* OxyCODONE Immed Rel 5 MG TABLET PO PRN (00:18)
[2018-08-15] MEDS: *HR* Enoxaparin 30 MG/0.3 ML SYRINGE SQ SCH ×2 (05:43→18:01)
[2018-08-15] MEDS: HYDROcodone BIT/Homatropine 5 MG TABLET PO PRN ×3 (05:46→18:01)
--- NOTE | 2018-08-15 06:21 | Orthopedics Progress Note ---
Date of Encounter: 08/15/18 Time of Encounter: 06:21 Subjective Interval history: Patient was seen this morning doing well without complaints. Afebrile vital signs stable. Operative extremity: Neurovascularly intact Dressing clean dry and intact Calves nontender Assessment and plan: Continue with postoperative care Hematocrit 30 Objective Vital signs: Vital Signs Temp Pulse Pulse Resp BP Pulse Ox 08/15/18 05:55 102 08/15/18 04:22 98.6 F 109 16 102/57 94 08/15/18 00:40 98.6 F 103 14 111/63 94 08/14/18 23:20 97 08/14/18 20:20 88 08/14/18 20:06 98.1 F 94 18 121/72 94 08/14/18 17:51 98.0 F 89 18 130/64 91 08/14/18 14:30 87 124/78 08/14/18 12:15 97.5 F L 65 16 109/67 94 08/14/18 12:02 98.3 F 66 16 104/73 96 08/14/18 11:52 68 16 104/72 94 08/14/18 11:42 98.1 F 71 16 101/49 96 08/14/18 11:32 70 16 93/55 96 08/14/18 11:22 72 16 90/61 97 08/14/18 11:12 98.8 F 76 14 110/86 99 08/14/18 09:50 78 148/101 100 08/14/18 09:39 94 94/66 99 08/14/18 09:29 99 126/70 97 08/14/18 09:03 90 145/93 96 08/14/18 08:54 88 16 131/89 99 08/14/18 08:44 90 16 143/90 97 08/14/18 08:34 88 18 145/92 99 08/14/18 08:28 89 18 150/93 98 08/14/18 08:26 96 18 160/102 99 08/14/18 08:23 151 18 147/105 99 08/14/18 07:53 160 156/128 97 08/14/18 07:04 98.7 F 77 18 130/80 96 08/14/18 06:51 98.7 F 77 18 130/80 96 Intake and Output 08/14/18 08/14/18 08/15/18 15:59 23:59 07:59 Intake Total 20 / 760 740 / 760 100 / 100 Output Total 200 / 620 420 / 620 200 / 200 Balance -180 / 140 320 / 140 -100 / -100 Intake: IV Fluids 20 / 120 100 / 120 100 / 100 Ancef Syringe 2,000 MG/20 ML 2, 20 / 20 000 mg In 20 ml @ 200 mls/hr IVPB PREOP ONE Rx#:[id number] Ancef 2,000 MG In 0.9 % Sodium 100 / 100 100 / 100 Chloride 100 ML @ 200 mls/hr IVPB Q8HR ISAI Rx#:[id number] Oral 640 / 640 0 / 0 Output: Urine 0 / 0 200 / 200 Emesis 420 / 420 Estimated Blood Loss 200 / 200 Other: Meal Dinner Percent of Meal Consumed 50% Stool Size Small Stool Consistency formed Stool Characteristics Normal for Patient Stool Color Brown # Voids 1 1 # Bowel Movements 1 Weight 76.6 kg Patient Weight 08/15/18 23:59 Weight 76.6 kg - Labs CBC & BMP: 08/14/18 11:37 Labs: Abnormal lab results Hgb 10.0 g/dL (11.5-15.4) L 08/14/18 11:37 Hct 30.6 % (35.3-44.9) L 08/14/18 11:37 - VTE Documentation of Mechanical Device: Venous foot pump, device Consult Discharge Plan - Plan Referrals: Alexa Morgan MD [Primary Care Provider] -
[2018-08-15 07:32] LABS: Basophils # 0.1 K/mcL (0.0-0.2); Basophils % 0.5 %; Eosinophils # 0.2 K/mcL (0.0-0.6); Eosinophils % 1.9 %; Hematocrit 28.2 % (35.3-44.9); Hemoglobin 9.4 g/dL (11.5-15.4); Immature Granulocytes % 0.5 % (0-4); Lymphocytes # 1.5 K/mcL (0.6-4.6); Lymphocytes % 15.6 %; Mean Corpuscular HGB Conc 33.3 g/dL (31.6-35.5); Mean Corpuscular Hemoglobin 32.8 pg (28.0-33.3); Mean Corpuscular Volume 98.3 fL (83.0-100.0); Monocytes # 1.5 K/mcL (0.0-1.3); Monocytes % 15.8 %; Neutrophils # 6.2 K/mcL (1.6-8.9); Platelet Count 156 K/mcL (140-400); Red Blood Count 2.87 M/mcL (3.82-4.97); Red Cell Distribution Width 14.7 % (11.5-14.5); Segmented Neutrophils % 65.7 %; White Blood Count 9.4 K/mcL (4.3-11.1)
[2018-08-15 07:49] LABS: BUN/Creatinine Ratio 36 (6-26); Blood Urea Nitrogen 24 mg/dL (8-23); Calcium 9.2 mg/dL (8.6-10.3); Carbon Dioxide 28 mEq/L (23-29); Chloride 101 mEq/L (98-107); Glucose 121 mg/dL (70-105); Osmolality,Calculated 291 (280-300); Potassium 4.1 mEq/L (3.5-5.1); Sodium 138 mEq/L (136-145); eGFR For African Americans > 60 (> 60); eGFR For Non-African Americans > 60 (> 60)
[2018-08-15] MEDS: Cholecalciferol (D-3) 1,000 UNIT TABLET PO SCH (08:13)
[2018-08-15] MEDS: Gabapentin 300 MG CAPSULE PO SCH ×2 (08:14→21:15)
[2018-08-15] MEDS: Multivit/Ca/Min/Fe/FA 1 TAB TABLET PO SCH (08:14)
[2018-08-15] MEDS: Metoprolol XL (24 HR) Succ 25 MG TAB.ER.24H PO SCH (08:15)
[2018-08-15] MEDS: Diltiazem CD (24hr) 120 MG CAPSULE PO SCH (08:15)
[2018-08-15] MEDS: Letrozole 2.5 MG TABLET PO SCH (08:16)
[2018-08-15] MEDS: Magnesium Oxide 400 MG TABLET PO SCH (08:16)
[2018-08-15] MEDS: FLUoxetine HCl 10 MG CAPSULE PO SCH (08:16)
[2018-08-15] MEDS: Ascorbic Acid 500 MG TABLET PO SCH ×2 (08:16→18:00)
--- NOTE | 2018-08-15 08:38 | Discharge Summary ---
Orders not resulted at time of discharge: Pending orders 08/14/18 10:50 Surgical Pathology [PTH] Routine 08/16/18 04:00 Basic Metabolic Panel DAILY Complete Blood Count [HEME] DAILY Date of Encounter: 08/18/18 Time of Encounter: 16:00 - Discharge Diagnosis (1) Osteoarthritis of right hip Priority: Primary Status: Chronic Qualifiers: Osteoarthritis type: unspecified Qualified Code(s): M16.11 - Unilateral primary osteoarthritis, right hip (2) Status post total hip replacement, right Priority: Primary Status: Acute (3) HTN (hypertension) Priority: Secondary Status: Chronic Qualifiers: Hypertension type: unspecified Qualified Code(s): I10 - Essential (primary) hypertension (4) HLD (hyperlipidemia) Priority: Secondary Status: Chronic Qualifiers: Hyperlipidemia type: unspecified Qualified Code(s): E78.5 - Hyperlipidemia, unspecified (5) Gout Priority: Secondary Status: Chronic Qualifiers: Gout site: unspecified site Gout etiology: unspecified cause Chronicity: unspecified Qualified Code(s): M10.9 - Gout, unspecified (6) Barretts esophagus Priority: Secondary Status: Chronic Qualifiers: Hastings's esophagus type: with dysplasia of unspecified degree Qualified Code(s): K22.719 - Hastings's esophagus with dysplasia, unspecified; K22.71 - Hastings's esophagus with dysplasia (7) Invasive ductal carcinoma of breast Priority: Secondary Status: Chronic Qualifiers: Laterality: left Qualified Code(s): C50.912 - Malignant neoplasm of unspecified site of left female breast (8) Osteoporosis Priority: Secondary Status: Chronic Qualifiers: Osteoporosis type: other Presence of current pathological fracture: unspecified Qualified Code(s): M81.8 - Other osteoporosis without current pathological fracture (9) Obesity Priority: Secondary Status: Chronic Qualifiers: Obesity type: unspecified obesity type Obesity classification: unspecified obesity classification Serious obesity comorbidity presence: unspecified whether serious comorbidity present Qualified Code(s): E66.9 - Obesity, unspecified (10) H/O paroxysmal supraventricular tachycardia Priority: Secondary Status: Chronic (11) Acute blood loss anemia Priority: Secondary Status: Acute - Hospital Course Hospital course: Ms. Lazo is a 73 year old female POD#4 Right Total Hip Replacment robotic-assisted [arthritis] 08/14/18 Patient had an episode of SVT preoperatively which converted and patient proceeded with surgery. Patient then had intermittent hypotension with borde rline tachycardia during her hospital course. Hospitalist was consulted on POD#2 for assistance in medical management. Concern for autonomic dysfunction vs acute blood loss anemia as cause of intermittent hypotension and tachycardia. Patient with history of this pattern after her recent surgery in 02/2018 though more profound during present admission. H/H 8.4/25.5 stable from yesterday with reduced episodes of acute hypotension. Will need continued monitoring for worsening anemia. Pain control has remained adequate throughout patient's hospital stay, though patient admits she has low pain tolerance. Patient participated with therapy. She was educated on use of incentive spirometer, ambulation, and hydration, as well as, post-operative restrictions and care. Doppler 6/ was negative for vte Patient had another episode of SVT morning of 08/18. Cardiology was consulted and requested Echo. This author discussed with Dr. Rodas of Cardiology - he states patient may discharge to [facility] after completion of echo and cardiology team at [place] will continue to evaluate and monitor patient's cardiac status while patient is at [place]. Patient course and disposition discussed with Dr. Jameson D/C plan: Inpt rehab - converted to inpatient status on POD#0 - Auth obtained for [facility] - discharge today - Time Spent with Patient Total time spent providing and/or coordinating discharge services: - Discharge Medications Prescriptions: New Enoxaparin [Lovenox] 30 mg SQ Q12HR 14 Days #28 syringe Ferrous Sulfate 325 mg PO BIDWM tablet Continued Allopurinol [Zyloprim 300 MG] 300 mg PO DAILY Omeprazole [PriLOSEC] 20 mg PO DAILY Gabapentin [Neurontin] 300 tab PO BID FLUoxetine HCl [Fluoxetine HCl] 10 mg PO DAILY Calcium Carbonate [Calcium] 500 mg PO DAILY Atorvastatin [Lipitor] 40 mg PO HS Letrozole [Femara] 2.5 mg PO DAILY Diltiazem CD (24hr) [Cardizem CD] 120 mg PO DAILY Metoprolol XL (24 HR) Succ [Toprol Xl] 25 mg PO DAILY Lisinopril/Hydrochlorothiazide [Zestoretic 10-12.5 mg Tablet] 1 tab PO DAILY Albuterol Sulfate [Albuterol Inhaler] 2 puff IH Q4HR PRN PRN Reason: Shortness Of Breath Cholecalciferol (D-3) [Vitamin D] 5,000 unit PO DAILY Magnesium Oxide [Magnesium] 400 mg PO DAILY OxyCODONE Immed Rel [Roxicodone 5 MG] 5 mg PO Q4HR PRN PRN Reason: Severe Pain Tramadol HCl [Ultram] 1 tab PO BID PRN PRN Reason: Moderate Pain Discontinued Ferrous Sulfate [Iron] 325 mg PO DAILY Home Medications: Allopurinol [Zyloprim 300 MG] 300 mg PO DAILY 03/27/15 [History] Gabapentin [Neurontin] 300 tab PO BID 03/27/15 [History] Omeprazole [PriLOSEC] 20 mg PO DAILY 03/27/15 [History] FLUoxetine HCl [Fluoxetine HCl] 10 mg PO DAILY 02/20/18 [History] Calcium Carbonate [Calcium] 500 mg PO DAILY 03/24/18 [History] Atorvastatin [Lipitor] 40 mg PO HS 06/19/18 [History] Letrozole [Femara] 2.5 mg PO DAILY 06/19/18 [History] Diltiazem CD (24hr) [Cardizem CD] 120 mg PO DAILY 07/06/18 [History] Albuterol Sulfate [Albuterol Inhaler] 2 puff IH Q4HR PRN 08/14/18 [History] Cholecalciferol (D-3) [Vitamin D] 5,000 unit PO DAILY 08/14/18 [History] Lisinopril/Hydrochlorothiazide [Zestoretic 10-12.5 mg Tablet] 1 tab PO DAILY 08/14/18 [History] Magnesium Oxide [Magnesium] 400 mg PO DAILY 08/14/18 [History] Metoprolol XL (24 HR) Succ [Toprol Xl] 25 mg PO DAILY 08/14/18 [History] Enoxaparin [Lovenox] 30 mg SQ Q12HR 14 Days #28 syringe 08/16/18 [Rx] Ferrous Sulfate 325 mg PO BIDWM tablet 08/16/18 [Rx] OxyCODONE Immed Rel [Roxicodone 5 MG] 5 mg PO Q4HR PRN 08/18/18 [History] Tramadol HCl [Ultram] 1 tab PO BID PRN 08/18/18 [History] Allergies/Adverse Reactions: Allergy/AdvReac Type Severity Reaction Status Date / Time No Known Allergies Allergy Verified 08/14/18 07:05 Date of admission: 08/14/18 12:03 Primary care physician: Aleax Morgan MD Consults: 08/14/18 12:07 Consult to Nurse Navigator [CONS] Routine Comment: ortho navigator Consult to Nutrition [CONS] Routine Comment: Consulting Provider: NUTRITION Reason for Dietary Consult: Other Other:: Proper nutrition to facilitate wound healing Consult to Occupational Therapy [CONS] Routine Comment: Evaluate, develop and implement POC Reason for Consult: total hip replacement Does patient have active BEDREST order?: No Is patient medically & hemodynamically stable?: Yes Consult to Physical Therapy [CONS] Routine Comment: Evaluate, develop and implement POC Reason for Consult: total hip replacement Does patient have active BEDREST order?: No Is patient medically & hemodynamically stable?: Yes Consult to Science Editor [CONS] Routine Reason for SW Consult: post op joint replacement RT Post Op Consult [CONS] Routine Discharging clinician: Mabel Rojas Anticipated date of discharge: 08/18/18 - VTE Documentation of Mechanical Device: Venous foot pump, device Labs on day of discharge: Labs from last 24 hours 08/15/18 08/15/18 08/14/18 07:14 07:14 11:37 WBC 9.4 RBC 2.87 L Hgb 9.4 L 10.0 L Hct 28.2 L 30.6 L MCV 98.3 MCH 32.8 MCHC 33.3 RDW 14.7 H Plt Count 156 MPV 11.0 Immature Gran % 0.5 Seg Neutrophils % 65.7 Lymphocytes % 15.6 Monocytes % 15.8 Eosinophils % 1.9 Basophils % 0.5 Neutrophils # 6.2 Lymphocytes # 1.5 Monocytes # 1.5 H Eosinophils # 0.2 Basophils # 0.1 Sodium 138 Potassium 4.1 Chloride 101 Carbon Dioxide 28 BUN 24 H Creatinine 0.66 Est GFR ( Amer) > 60 Est GFR (Non-Af Amer) > 60 BUN/Creatinine Ratio 36 H Glucose 121 H POC Glucose Calculated Osmolality 291 Calcium 9.2 08/14/18 06:44 WBC RBC Hgb Hct MCV MCH MCHC RDW Plt Count MPV Immature Gran % Seg Neutrophils % Lymphocytes % Monocytes % Eosinophils % Basophils % Neutrophils # Lymphocytes # Monocytes # Eosinophils # Basophils # Sodium Potassium Chloride Carbon Dioxide BUN Creatinine Est GFR ( Amer) Est GFR (Non-Af Amer) BUN/Creatinine Ratio Glucose POC Glucose 97 Calculated Osmolality Calcium - Impressions ITS Impressions Hip X-Ray 08/14/18 01:00 IMPRESSION: Total hip arthropasty without acute hardware complication. D/ / Cecil Christianson MD / Cecil Christianson MD Interpreting Provider: Cecil Christianson MD Hip X-Ray 08/15/18 06:21 IMPRESSION: 1. Status post right total hip arthroplasty with normal alignment. No acute complication of the osseous structures. 2. Indeterminate progressive soft tissue air along the right lateral hemipelvis. D/ / 08/15/2018 07:21:08 Grey Montano MD / anastacia Interpreting Provider: Grey Montano MD - Patient Status Disposition: Transfer Inpatient Rehab Fac Condition: Good Functional capacity at discharge: uses cane/walker Overall status at discharge: patient is progressing back to baseline - Discharge Instructions Follow Up With: Alexa Morgan MD [Primary Care Provider] - Additional Instructions: Discharge Instructions: Total Hip Replacement Please call [facility] ([phone]), your Primary Care Physician, or report to the Emergency Room if you have any of the following symptoms: Nausea, vomiting, fever greater that 101.5, swelling, chest pain, shortness of breath, increased pain/redness/drainage/odor for your incision site, numbness/tingling, or any other concerning symptoms. ACTIVITY:Weight-bearing as tolerated for 8 weeks with hip dislocation precautions that physical therapy taught you. You may progress as tolerated under the guidance of your physical therapist. You do not need to sleep with a pillow between your legs. You can also seep on the operative side or on your stomach. Incentive Spirometer 10 times an hour. MEDICATIONS: Upon discharge resume your home medications. Take all the medications as prescribed. Take a stool softener if taking narcotic pain medications. Stool softeners are only effective if you drink enough fluids. Drink 6-8 glass of water or fluids a day, unless this is not allowed for another health problem. Despite using stool softeners, if you haven't had a bowel movement in 3 days, please switch to a gentle laxative. Gentle laxatives are sold over the counter. You should have a bowel movement within 24 hours, if not call the office. You will be discharged from the hospital with a prescription for pain medication. You are encouraged to decrease the use of narcotic pain medication as tolerated. Should you require a refill, please call the office. [facility] prescribes narcotic pain medication for only 4-6 weeks after surgery. If you require pain medication beyond this time period, you may be referred to your Primary Care Physician or to the Pain Clinic for further evaluation. Plan ahead for refills on pain medication as many narcotics either need to be picked up at the office or mailed. It is best to call 48-72 hours in advance of needing a prescription refill so you don't run out of medication. To help control the post-operative pain, you may take NSAIDs (Aleve,Advil, Motrin, ibuprofen, naprosyn) or Tylenol as prescribed on the bottle in addition to the pain medication. ANTICOAGULATION (blood thinners): Continue your Aspirin, Lovenox or Coumadin as prescribed to help prevent a blood clot in the leg or in the lungs. As long as your incision remains dry and you tolerate the NSAIDs (Aleve, Advil, Motrin, Ibuprofen, Naprosyn), it is OK to use the NSAIDS while you are taking your anticoagulation medication. Should your incision start to drain, stop the NSAID and contact our office. Common symptoms of blood clot in the legs include: localized pain, swelling, calf tenderness, redness or discoloration of the skin. Blood clot in the lung symptoms include: shortness of breath, rapid pulse, sweating, and chest pain that worsens with deep breathing, coughing up blood, lightheadedness, feelings of anxiety. If you experience any of these symptoms notify your physician immediately, go to the emergency room, or if having trouble breathing, call 911. WOUND CARE: Leave the dressing on for 7 to 10days. You may change the dressing if it is saturated greater than 50%. Do not get the dressing wet at anytime. Wash your hands with antibacterial soap, rinse and dry prior to any wound care. If you have tori the visiting nurse or rehab facility can remove the stapes 10-14 days after surgery and place steri-strips across the wound. Leave the steri-strips in place until they fall off on their own. You may let water from the shower run on top of the steri-strips. If you do not have a visiting nurse or rehab facility, you will need to return to the office at 10-14 days for the tori to be removed. If you have itching or redness around the dressing call the office. FOLLOW-UP: Please follow up with your surgeon in the orthopedic clinic in 6 weeks from the day of surgery. If you have tori that need to be removed, you will need to come back to the office in 10-14 days from the day of surgery. - Diet and Activity Activity: as per physical therapy Diet: advance to your usual diet
--- NOTE | 2018-08-15 08:48 | Physician Discharge Referral ---
ExtendedCare Referral Info Transfer To: In Rehab Provider in Charge: Dr. Ronald Jameson - Diagnosis (1) Osteoarthritis of right hip Priority: Primary Status: Chronic (2) Status post total hip replacement, right Priority: Primary Status: Acute (3) Barretts esophagus Priority: Secondary Status: Chronic (4) Gout Priority: Secondary Status: Chronic (5) H/O paroxysmal supraventricular tachycardia Priority: Secondary Status: Chronic (6) HLD (hyperlipidemia) Priority: Secondary Status: Chronic (7) HTN (hypertension) Priority: Secondary Status: Chronic (8) Invasive ductal carcinoma of breast Priority: Secondary Status: Chronic (9) Obesity Priority: Secondary Status: Chronic (10) Osteoporosis Priority: Secondary Status: Chronic (11) Acute blood loss anemia Priority: Secondary Status: Acute Expected Duration of Placement: less than 30 days Prognosis: Good Aware of Diagnosis: Patient Aware of Prognosis: Patient - Transfer Medications Prescriptions: Enoxaparin [Lovenox] 30 mg SQ Q12HR 14 Days #28 syringe Home Medications: Allopurinol [Zyloprim 300 MG] 300 mg PO DAILY 03/27/15 [History] Gabapentin [Neurontin] 300 tab PO BID 03/27/15 [History] Omeprazole [PriLOSEC] 20 mg PO DAILY 03/27/15 [History] FLUoxetine HCl [Fluoxetine HCl] 10 mg PO DAILY 02/20/18 [History] Calcium Carbonate [Calcium] 500 mg PO DAILY 03/24/18 [History] Atorvastatin [Lipitor] 40 mg PO HS 06/19/18 [History] Letrozole [Femara] 2.5 mg PO DAILY 06/19/18 [History] Diltiazem CD (24hr) [Cardizem CD] 120 mg PO DAILY 07/06/18 [History] Albuterol Sulfate [Albuterol Inhaler] 2 puff IH Q4HR PRN 08/14/18 [History] Cholecalciferol (D-3) [Vitamin D] 5,000 unit PO DAILY 08/14/18 [History] Lisinopril/Hydrochlorothiazide [Zestoretic 10-12.5 mg Tablet] 1 tab PO DAILY 08/14/18 [History] Magnesium Oxide [Magnesium] 400 mg PO DAILY 08/14/18 [History] Metoprolol XL (24 HR) Succ [Toprol Xl] 25 mg PO DAILY 08/14/18 [History] Enoxaparin [Lovenox] 30 mg SQ Q12HR 14 Days #28 syringe 08/16/18 [Rx] Ferrous Sulfate 325 mg PO BIDWM tablet 08/16/18 [Rx] OxyCODONE Immed Rel [Roxicodone 5 MG] 5 mg PO Q4HR PRN 08/18/18 [History] Tramadol HCl [Ultram] 1 tab PO BID PRN 08/18/18 [History] Allergies/Adverse Reactions: Allergy/AdvReac Type Severity Reaction Status Date / Time No Known Allergies Allergy Verified 08/14/18 07:05 - Respiratory Orders Smoking Cessation: Smoking cessation has been advised. For more information, call the [employer] Tobacco Quit Line at 7-042-ODIL-NOW. - Lab Orders Lab Orders: Other (include drug levels w/frequency) (H/H QD or Q48 for monitoring of acute blood loss anemia) - Ancillary Orders May use pressure relief devices daily prn, May go on RAISSA w/family/respon alliance party w/meds at nurse discretion PRN, May consult with Dentist, Verification Rep, Systems Integration Analyst PRN - Mobility Orders Chair, Ambulate - Rehabiliation Orders Rehab Potential: Good Rehab Orders: Evaluation for Physical Therapy, Evaluation for Occupational Therapy Other: Total Hip replacement Precautions Apply cold therapy 3-6x/day for 20 minutes at a time. Encourage ambulation throughout the day and incentive spirometer 10x/hour. Elevate affected extremity as tolerated. Brace: Wear hip abduction pillow when laying/sleeping - Treatments Skin tear care topically daily PRN per policy List/Other: Opsite placed. Keep dressing intact until first follow up appointment. If greater than 50% saturated, notify office, remove dressing and place appropriate dressing back in place. Leave Zipline intact. Opsite dressing is water resistant, not water-proof. OK to shower, but do not get dressing wet. - Diet Orders Regular CERTIFICATION: I certify that the transfer of the above named patient to an Extended Care Facility is necessary for the continuing treatment of the diagnosis listed. The above information is true and accurate reflection of patient's current condition. Confidential - Redisclosure prohibited without a patient's written consent.
--- NOTE | 2018-08-15 08:48 | Event Note ---
Date of Encounter: 08/15/18 Time of Encounter: 12:20 PCR- POD#1 Right Total Hip Replacment robotic-assisted [arthritis] 08/14/18 PCR - Patient seen at bedside. A&Ox3 Dressing and incision c/d/i No calf tenderness, erythema, or warmth. Neurovascularly intact b/l LE. Labwork, vitals, and medications reviewed. Intermittent hypotension. Pain control: Adequate Participating in therapy. All questions and concerns addressed. Educated on use of incentive spirometer, ambulation, and hydration. Patient educated on post-operative restrictions and care. Addressed: see above. Patient course and disposition discussed with Dr. Jameson D/C plan: Inpt rehab - converted to inpatient status on POD#0 - awaiting insurance auth for [facility]
[2018-08-15] MEDS: Acetaminophen IV 1,000 MG/100 ML INFUS..BTL IVPB PRN ×2 (08:55→19:21)
[2018-08-16] MEDS: HYDROcodone BIT/Homatropine 5 MG TABLET PO PRN (03:31)
[2018-08-16 04:50] LABS: Basophils % 0.4 %; Eosinophils # 0.3 K/mcL (0.0-0.6); Eosinophils % 2.8 %; Hematocrit 26.9 % (35.3-44.9); Hemoglobin 8.9 g/dL (11.5-15.4); Immature Granulocytes % 0.5 % (0-4); Lymphocytes # 1.4 K/mcL (0.6-4.6); Lymphocytes % 14.2 %; Mean Corpuscular HGB Conc 33.1 g/dL (31.6-35.5); Mean Corpuscular Volume 99.6 fL (83.0-100.0); Mean Platelet Volume 11.9 fL (9.4-12.4); Monocytes # 1.3 K/mcL (0.0-1.3); Neutrophils # 6.5 K/mcL (1.6-8.9); Platelet Count 147 K/mcL (140-400); Red Cell Distribution Width 14.6 % (11.5-14.5); Segmented Neutrophils % 68.1 %; White Blood Count 9.5 K/mcL (4.3-11.1)
[2018-08-16 05:04] LABS: BUN/Creatinine Ratio 35 (6-26); Blood Urea Nitrogen 22 mg/dL (8-23); Calcium 8.9 mg/dL (8.6-10.3); Carbon Dioxide 27 mEq/L (23-29); Chloride 101 mEq/L (98-107); Glucose 112 mg/dL (70-105); Osmolality,Calculated 282 (280-300); Potassium 3.7 mEq/L (3.5-5.1); Sodium 134 mEq/L (136-145); eGFR For African Americans > 60 (> 60); eGFR For Non-African Americans > 60 (> 60)
[2018-08-16] MEDS: *HR* Enoxaparin 30 MG/0.3 ML SYRINGE SQ SCH ×2 (06:12→16:53)
--- NOTE | 2018-08-16 06:41 | Orthopedics Progress Note ---
Date of Encounter: 08/16/18 Time of Encounter: 06:40 - Assessment and Plan (1) Acute blood loss anemia Current Visit: Yes Status: Acute Subjective Interval history: Patient was seen this morning doing well without complaints. Afebrile vital signs stable. Operative extremity: Neurovascularly intact Dressing clean dry and intact Calves nontender Assessment and plan: Continue with postoperative care Hematocrit 26.9 discharge when approved for placement Objective Vital signs: Vital Signs Temp Pulse Pulse Resp BP Pulse Ox 08/16/18 05:17 98.8 F 96 19 107/64 92 08/16/18 00:09 88 08/15/18 23:34 98.7 F 89 19 104/68 95 08/15/18 19:39 95 08/15/18 19:18 99 08/15/18 17:43 98.4 F 101 17 116/71 94 08/15/18 15:33 98.9 F 96 16 124/79 95 08/15/18 13:50 98.8 F 80 16 117/71 94 08/15/18 12:11 98.0 F 84 17 90/57 93 08/15/18 08:11 83 126/83 08/15/18 06:54 98.7 F 98 16 108/67 98 Intake and Output 08/15/18 08/15/18 08/16/18 15:59 23:59 07:59 Intake Total 700 / 1100 300 / 1100 850 / 850 Output Total 500 / 700 230 / 230 Balance 700 / 400 -200 / 400 620 / 620 Intake: IV Fluids 100 / 300 100 / 300 Ofirmev 1,000 mg/100 ml 1,000 100 / 200 100 / 200 mg In 100 ml @ 400 mls/hr IVPB Q8HR PRN Rx#:[id number] Oral 600 / 800 200 / 800 850 / 850 Output: Urine 500 / 700 230 / 230 Other: Meal Lunch Dinner Percent of Meal Consumed 75% 0% # Voids 1 - Labs CBC & BMP: 08/16/18 04:14 08/16/18 04:14 Labs: Abnormal lab results RBC 2.70 M/mcL (3.82-4.97) L 08/16/18 04:14 Hgb 8.9 g/dL (11.5-15.4) L 08/16/18 04:14 Hct 26.9 % (35.3-44.9) L 08/16/18 04:14 RDW 14.6 % (11.5-14.5) H 08/16/18 04:14 1.5 K/mcL (0.0-1.3) H 08/15/18 07:14 Sodium 134 mEq/L (136-145) L 08/16/18 04:14 BUN 24 mg/dL (8-23) H 08/15/18 07:14 35 (6-26) H 08/16/18 04:14 Glucose 112 mg/dL (70-105) H 08/16/18 04:14 - VTE Documentation of Mechanical Device: Venous foot pump, device Consult Discharge Plan - Plan Referrals: Alexa Morgan MD [Primary Care Provider] - Prescriptions: OxyCODONE Immed Rel [Roxicodone 5 MG] 5 mg PO Q6HR PRN 5 Days #20 tablet PRN Reason: Severe Pain
[2018-08-16] MEDS: Letrozole 2.5 MG TABLET PO SCH (07:24)
[2018-08-16] MEDS: Acetaminophen IV 1,000 MG/100 ML INFUS..BTL IVPB PRN ×2 (07:48→18:07)
[2018-08-16] MEDS: Ascorbic Acid 500 MG TABLET PO SCH ×2 (09:35→16:53)
[2018-08-16] MEDS: Cholecalciferol (D-3) 1,000 UNIT TABLET PO SCH (09:35)
[2018-08-16] MEDS: Magnesium Oxide 400 MG TABLET PO SCH (09:35)
[2018-08-16] MEDS: Multivit/Ca/Min/Fe/FA 1 TAB TABLET PO SCH (09:35)
[2018-08-16] MEDS ORDERED: 0.9 % Sodium Chloride 500 ML IVC ONE ×2 (09:45→19:41)
[2018-08-16] MEDS: Diltiazem CD (24hr) 120 MG CAPSULE PO SCH ×2 (09:53→13:28)
[2018-08-16] MEDS: Gabapentin 300 MG CAPSULE PO SCH ×2 (09:53→20:22)
[2018-08-16] MEDS: Metoprolol XL (24 HR) Succ 25 MG TAB.ER.24H PO SCH (09:53)
[2018-08-16] MEDS: FLUoxetine HCl 10 MG CAPSULE PO SCH ×2 (09:53→13:29)
[2018-08-16 10:17] LABS: Hematocrit 25.5 % (35.3-44.9); Hemoglobin 8.6 g/dL (11.5-15.4)
--- NOTE | 2018-08-16 12:31 | Electrocardiograph Report ---
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
--- NOTE | 2018-08-16 12:49 | Electrocardiograph Report ---
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
[2018-08-16] MEDS: *HR* OxyCODONE Immed Rel 5 MG TABLET PO PRN (13:29)
--- NOTE | 2018-08-16 15:06 | Event Note ---
Date of Encounter: 08/16/18 Time of Encounter: 15:00 PCR- POD#2 Right Total Hip Replacment robotic-assisted [arthritis] 08/14/18 PCR - Patient seen at bedside. Patient's two daughters at bedside. Patient ambulating with walker with OT at beginning of visit. A&Ox3 Dressing and incision c/d/i No calf tenderness, erythema, or warmth. Neurovascularly intact b/l LE. Labwork, vitals, and medications reviewed. Intermittent hypotension with borderline tachycardia. EKG from earlier today demonstrates sinus tach. Many of patient's medications had to be held today secondary to hypotension. Patient given 500cc bolus Nl Saline this morning with stabilization of blood pressure. H/H 8.6/25.5 on repeat. Concern for autonomic dysfunction vs acute blood loss anemia as cause of intermittent hypotension and tachycardia. Patient with history of this pattern after her recent surgery in 02/2018 though more profound during present admission. Pain control: Adequate though patient admits she has low pain tolerance. Ofirmev appears to be providing significant relief in combination with patient's opioid administration. Participating in therapy. All questions and concerns addressed. Educated on use of incentive spirometer, ambulation, and hydration. Patient educated on post-operative restrictions and care. Addressed: With patient's preoperative episode of SVT, anemia, and hypotension requiring holding many of her medications as well as her background medical history - will consult hospitalist team for assistance in medical management. Patient course and disposition discussed with Dr. Jameson D/C plan: Inpt rehab - converted to inpatient status on POD#0 - awaiting insurance auth for [facility] - possible discharge tomorrow pending medical optimization.
--- NOTE | 2018-08-16 16:50 | Internal Medicine Consult Note ---
Date of Encounter: 08/16/18 Time of Encounter: 16:45 - Assessment and Plan (1) Hypotension Current Visit: Yes Status: Acute Assessment and plan: Intermittent hypotension, mild, with sbp around 80-90. This could be associated recent blood loss during surgery. Some medicine change including adding cardizem could also contribute. Mild fever upon assessment, but there is no signs of infection or sepsis. we will obtain blood cx. Lisinopril/HCTZ was on hold after discussed with patient and family, but will continue metoprol and cardizem in rosemary of tachycardia. Received IVF, currently BP stable. Continue monitoring. Qualifiers: Hypotension type: unspecified hypotension type Qualified Code(s): I95.9 - Hypotension, unspecified (2) Tachycardia Current Visit: Yes Status: Acute Assessment and plan: ECG showed sinus tachycardia, she has hx of SVT. intermittent SVT can not be ruled out. Received IVF. normal Ca2+ and K+, will check Mag. recent lab showed normal TSH. Will continue metoprolol and cardizem. Monitoring. (3) HTN (hypertension) Current Visit: No Status: Chronic Qualifiers: Hypertension type: unspecified Qualified Code(s): I10 - Essential (primary) hypertension (4) Anemia Current Visit: No Status: Chronic Assessment and plan: Blood loss secondary to surgery, H/H stable, continue monitoring. Qualifiers: Anemia type: unspecified type Qualified Code(s): D64.9 - Anemia, unspecified (5) Gout Current Visit: No Status: Chronic Assessment and plan: continue home meds. Qualifiers: Gout site: unspecified site Gout etiology: unspecified cause Chronicity: chronic Presence of tophus: without tophus Qualified Code(s): M1A.9XX0 - Chronic gout, unspecified, without tophus (tophi) (6) PSVT (paroxysmal supraventricular tachycardia) Current Visit: No Status: Acute Assessment and plan: same as above. (7) DVT prophylaxis Current Visit: No Status: Acute Assessment and plan: Lovenox sq. - Time Spent With Patient Total time spent is greater than 50% in coordination of care (as documented) at patient's floor/unit and/or counseling patient: Greater than 35 minutes Internal Medicine - CN: HPI - Data of Consult Patient: new to practice Consult date: 08/16/18 Requesting Physician: Ronald Jameson MD - Consult Narrative Reason for consult: hypotension and tachycardia History of present illness: Ms. Lazo is a 73 year old female with past medical history of breast cancer, gout, hypertension, and paroxysmal SVT who recently underwent right-sided total hip replacement on 08/14/2018. After the procedure, patient was found to have intermittent low blood pressure and tachycardia. Her labs showed decreased hemoglobin level, which was thought secondary to acute blood loss from surgery. Her latest hemoglobin was stable at 8.5. She has history of paroxysmal SVT and heart rate occasionally jumped to 120. Long-acting Cardizem was started today at 120 mg daily in addition to her home medication metoprolol. She also on lisinopril/HCTZ for hypertension at home. This morning, her blood pressure was 80/50, she received bolus IV fluid. Hospitalist group was consulted. She is currently alert and oriented, temperature 100.4, blood pressure 119/84, heart rate 110. Sinus rhythm on the telemetry. Patient denies any chest pain, shortness breath, palpitation, or lightheadedness. Past Med Surg Social Fam HX - Past Medical History Medical history: asthma, cancer, GERD, hyperlipidemia, hypertension, osteoporosis, other Additional medical history: breast cancer,Barretts esophagus,artificial joints,anemia,invasive ductal carcinoma of left breast Psychiatric history: anxiety, depression - Past Surgical History Surgical History: appendectomy, breast surgery, knee replacement, orthopedic, other, other Additional surgical history: right knee,EGD,right arthroscopic knee,right knee replacement,vein stripping,colonoscopy,paraesophageal hernia repair,left breast biopsy,left lumpectomy with one month radiation. tubal ligation. hiatal hernia - Social History Smoking Status: Never smoker Smokeless Tobacco Status: No Alcohol use: none Drug use: none - Family History Mother Living Status: Hx Family Cardiac Disorders: No Hx Family Respiratory Disorders: No Hx Family Cancer: Yes (Throat) Hx Family GI Disorders: No Hx Family Endocrine Disorder: No Hx Family Neuromuscular Disorders: No Hx Family Neurologic Disorders: No Hx Family HEENT Disorders: No Hx Family Autoimmune Disorders: No Brother Hx Family Cancer: Yes (head/neck ca) Review of systems: REVIEW OF SYSTEMS: CONSTITUTIONAL: No weight loss, fever, chills, weakness or fatigue. HEENT: Eyes: No visual loss, blurred vision, double vision or yellow sclerae. Ears, Nose, Throat: No hearing loss, sneezing, congestion, runny nose or sore throat. SKIN: No rash or itching. CARDIOVASCULAR: No chest pain, chest pressure or chest discomfort. No palpitations or edema. RESPIRATORY: No shortness of breath, cough or sputum. GASTROINTESTINAL: No anorexia, nausea, vomiting or diarrhea. No abdominal pain or blood. GENITOURINARY: No dysuria, urgency, or frequency. NEUROLOGICAL: No headache, dizziness, syncope, paralysis, ataxia, numbness or tingling in the extremities. No change in bowel or bladder control. MUSCULOSKELETAL: No muscle, back pain, joint pain or stiffness. HEMATOLOGIC: No anemia, bleeding or bruising. LYMPHATICS: No enlarged nodes. No history of splenectomy. PSYCHIATRIC: No history of depression or anxiety. ENDOCRINOLOGIC: No reports of sweating, cold or heat intolerance. No polyuria or polydipsia. Internal Medicine - CN: Meds Allopurinol [Zyloprim 300 MG] 300 mg PO DAILY 03/27/15 [History] Gabapentin [Neurontin] 300 tab PO BID 03/27/15 [History] Omeprazole [PriLOSEC] 20 mg PO DAILY 03/27/15 [History] FLUoxetine HCl [Fluoxetine HCl] 10 mg PO DAILY 02/20/18 [History] Calcium Carbonate [Calcium] 500 mg PO DAILY 03/24/18 [History] Ferrous Sulfate [Iron] 325 mg PO DAILY 03/24/18 [History] Atorvastatin [Lipitor] 40 mg PO HS 06/19/18 [History] Letrozole [Femara] 2.5 mg PO DAILY 06/19/18 [History] Diltiazem CD (24hr) [Cardizem CD] 120 mg PO DAILY 07/06/18 [History] Tramadol HCl [Ultram] 1 tab PO BID PRN 30 Days #60 tab 07/26/18 [Rx] Albuterol Sulfate [Albuterol Inhaler] 2 puff IH Q4HR PRN 08/14/18 [History] Cholecalciferol (D-3) [Vitamin D] 5,000 unit PO DAILY 08/14/18 [History] Lisinopril/Hydrochlorothiazide [Zestoretic 10-12.5 mg Tablet] 1 tab PO DAILY [History] Magnesium Oxide [Magnesium] 400 mg PO DAILY 08/14/18 [History] Metoprolol XL (24 HR) Succ [Toprol Xl] 25 mg PO DAILY 08/14/18 [History] OxyCODONE Immed Rel [Roxicodone 5 MG] 5 mg PO Q6HR PRN 5 Days #20 tablet 08/15/18 [Rx] Allergy/AdvReac Type Severity Reaction Status Date / Time No Known Allergies Allergy Verified 08/14/18 07:05 Hospitalist - CN: Exam - Constitutional Vitals: Temp Pulse Resp BP Pulse Ox 100.4 F H 110 15 119/84 93 08/16/18 16:20 08/16/18 16:20 08/16/18 16:20 08/16/18 16:20 08/16/18 16:20 General appearance IM: Present: A&O X 3 Exam: PHYSICAL EXAMINATION: GENERAL APPEARANCE: The patient is alert, oriented and in no acute distress. HEENT: Head is normocephalic. The sinuses are nontender. Pupils are equal and reactive. The nares are patent. Oropharynx clear without lesions. NECK: Supple without lymphadenopathy. HEART: Regular rate and rhythm. LUNGS: No crackles or wheezes are heard. ABDOMEN: Soft, nontender, nondistended with good bowel sounds heard. Inguinal area is normal. EXTREMITIES: right hip post-surgical change NEUROLOGICAL: Gross nonfocal. SKIN: Warm and dry without any rash. Internal Medicine - CN: Reslt - Labs CBC & Chem 7: 08/16/18 10:02 08/16/18 04:14 Labs: Short CBC 08/16/18 08/16/18 Range/Units 04:14 10:02 WBC 9.5 (4.3-11.1) K/mcL Hgb 8.9 L 8.6 L (11.5-15.4) g/dL Hct 26.9 L 25.5 L (35.3-44.9) % Plt Count 147 (140-400) K/mcL Neutrophils # 6.5 (1.6-8.9) K/mcL BMP 08/16/18 04:14 Sodium 134 L Potassium 3.7 Chloride 101 Carbon Dioxide 27 BUN 22 Creatinine 0.63 Glucose 112 H Calcium 8.9 Consult Discharge Plan - Plan Referrals: Alexa Morgan MD [Primary Care Provider] - Prescriptions: OxyCODONE Immed Rel [Roxicodone 5 MG] 5 mg PO Q6HR PRN 5 Days #20 tablet PRN Reason: Severe Pain
[2018-08-17] MEDS: *HR* OxyCODONE Immed Rel 5 MG TABLET PO PRN ×5 (00:23→21:48)
[2018-08-17] MEDS: *HR* Enoxaparin 30 MG/0.3 ML SYRINGE SQ SCH ×2 (06:34→17:46)
[2018-08-17 06:45] LABS: BUN/Creatinine Ratio 33 (6-26); Blood Urea Nitrogen 18 mg/dL (8-23); Calcium 8.7 mg/dL (8.6-10.3); Carbon Dioxide 28 mEq/L (23-29); Chloride 103 mEq/L (98-107); Glucose 121 mg/dL (70-105); Hematocrit 25.4 % (35.3-44.9); Hemoglobin 8.4 g/dL (11.5-15.4); Mean Corpuscular HGB Conc 33.1 g/dL (31.6-35.5); Mean Corpuscular Hemoglobin 33.2 pg (28.0-33.3); Mean Corpuscular Volume 100.4 fL (83.0-100.0); Mean Platelet Volume 11.9 fL (9.4-12.4); Osmolality,Calculated 291 (280-300); Platelet Count 142 K/mcL (140-400); Potassium 3.9 mEq/L (3.5-5.1); Red Blood Count 2.53 M/mcL (3.82-4.97); Red Cell Distribution Width 14.7 % (11.5-14.5); Sodium 139 mEq/L (136-145); White Blood Count 8.5 K/mcL (4.3-11.1); eGFR For African Americans > 60 (> 60); eGFR For Non-African Americans > 60 (> 60)
--- NOTE | 2018-08-17 08:02 | Orthopedics Progress Note ---
Date of Encounter: 08/17/18 Time of Encounter: 08:02 - Assessment and Plan (1) Acute blood loss anemia Current Visit: Yes Status: Acute Subjective Interval history: Patient was seen this morning doing well without complaints. Afebrile vital signs stable. Operative extremity: Neurovascularly intact Dressing clean dry and intact Calves nontender Assessment and plan: Continue with postoperative care Hb 8.4 asymptomatic discharge when approved for placement Objective Vital signs: Vital Signs Temp Pulse Pulse Resp BP Pulse Ox 08/17/18 06:25 98.5 F 107 16 118/71 96 08/17/18 03:37 98.7 F 96 16 103/66 92 08/17/18 00:17 105/76 08/16/18 22:55 98.6 F 99 17 97/63 93 08/16/18 19:31 96 08/16/18 19:13 98.5 F 103 16 83/47 91 08/16/18 16:20 100.4 F H 110 15 119/84 93 08/16/18 13:27 102 105/69 08/16/18 12:10 98.3 F 100 15 104/74 93 08/16/18 11:57 111/68 08/16/18 09:33 97 80/50 Intake and Output 08/16/18 08/17/18 08/17/18 23:59 07:59 15:59 Intake Total 100 / 100 Output Total 500 / 730 200 / 200 Balance -500 / 840 -100 / -100 Intake: IV Fluids 100 / 100 Ofirmev 1,000 mg/100 ml 1,000 100 / 100 mg In 100 ml @ 400 mls/hr IVPB Q8HR PRN Rx#:[id number] Output: Urine 500 / 730 200 / 200 Other: # Voids 1 - Labs CBC & BMP: 08/17/18 05:07 08/17/18 05:07 Labs: Abnormal lab results RBC 2.53 M/mcL (3.82-4.97) L 08/17/18 05:07 Hgb 8.4 g/dL (11.5-15.4) L 08/17/18 05:07 Hct 25.4 % (35.3-44.9) L 08/17/18 05:07 MCV 100.4 fL (83.0-100.0) H 08/17/18 05:07 RDW 14.7 % (11.5-14.5) H 08/17/18 05:07 1.5 K/mcL (0.0-1.3) H 08/15/18 07:14 Sodium 134 mEq/L (136-145) L 08/16/18 04:14 BUN 24 mg/dL (8-23) H 08/15/18 07:14 0.55 mg/dL (0.60-1.20) L 08/17/18 05:07 33 (6-26) H 08/17/18 05:07 Glucose 121 mg/dL (70-105) H 08/17/18 05:07 - VTE Documentation of Mechanical Device: Venous foot pump, device Consult Discharge Plan - Plan Referrals: Alexa Morgan MD [Primary Care Provider] - Prescriptions: Enoxaparin [Lovenox] 30 mg SQ Q12HR 14 Days #28 syringe OxyCODONE Immed Rel [Roxicodone 5 MG] 5 mg PO Q6HR PRN 5 Days #20 tablet PRN Reason: Severe Pain
[2018-08-17] MEDS: Gabapentin 300 MG CAPSULE PO SCH ×2 (08:42→21:24)
[2018-08-17] MEDS: Cholecalciferol (D-3) 1,000 UNIT TABLET PO SCH (08:42)
[2018-08-17] MEDS: Letrozole 2.5 MG TABLET PO SCH (08:43)
[2018-08-17] MEDS: Diltiazem CD (24hr) 120 MG CAPSULE PO SCH (08:43)
[2018-08-17] MEDS: FLUoxetine HCl 10 MG CAPSULE PO SCH (08:43)
[2018-08-17] MEDS: Magnesium Oxide 400 MG TABLET PO SCH (08:43)
[2018-08-17] MEDS: Ascorbic Acid 500 MG TABLET PO SCH ×2 (08:43→17:46)
[2018-08-17] MEDS: traMADol 50 MG TABLET PO PRN ×2 (08:44→15:51)
[2018-08-17] MEDS: Multivit/Ca/Min/Fe/FA 1 TAB TABLET PO SCH (08:44)
--- NOTE | 2018-08-17 10:22 | Internal Med Progress Note ---
Hospitalist Progress Note - Encounter Date of Encounter: 08/17/18 Time of Encounter: 08:00 - Subjective Interval History: Patient was seen and examined at bedside. Reports that she had pain earlier this morning however was provided with pain medications by the nursing staff and is feeling much better. Denies fever, chills, dysuria, shortness of breath or cough. Feels much better than yesterday. Denies dizziness, LOc chest pain or palpitations. - Exam Vitals: Temp Pulse Resp BP Pulse Ox 98.5 F 107 16 118/71 96 08/17/18 06:25 08/17/18 06:25 08/17/18 06:25 08/17/18 06:25 08/17/18 06:25 Exam: PHYSICAL EXAMINATION: GENERAL APPEARANCE: The patient is alert, oriented and in no acute distress. HEENT: Head is normocephalic. The sinuses are nontender. Pupils are equal and reactive. NECK: Supple without lymphadenopathy. HEART: Regular rate and rhythm. s1 and s2 LUNGS: No crackles or wheezes are heard. ABDOMEN: Soft, nontender, nondistended with good bowel sounds heard. Inguinal area is normal. EXTREMITIES: right hip post-surgical change, has ecchymosis don to the knee , dressing is clean dry and intact NEUROLOGICAL: Gross nonfocal. SKIN: Warm and dry without any rash. - Assessment and Plan (1) Hypotension Current Visit: Yes Status: Acute Assessment and Plan: Intermittent hypotension, mild, with sbp around 80-90. This could be associated recent blood loss during surgery in addition to pain medications . BP medications were recently adjusted Doubt infectious etiology ( no fever, no leukocytosis, BCx NGTD) BP is controlled now with BB and CCB, will hold off of HCTZ and lisinopril for now as she is also on pain medications which can result in hypotension along with acute on chronci anemia post op. continue to monitor vitals closely (2) Tachycardia Current Visit: Yes Status: Acute Assessment and Plan: ECG showed sinus tachycardia, she has hx of SVT. tachycardia is most likely secondary to pain magnesium and potassium WNL continue with home BB nad CCB tele without significant arrhythmia pain control as per orthopedics (3) Anemia Current Visit: No Status: Chronic Assessment and Plan: Blood loss secondary to surgery, H/H stable, continue monitoring. (4) Gout Current Visit: No Status: Chronic Assessment and Plan: continue home meds. (5) PSVT (paroxysmal supraventricular tachycardia) Current Visit: No Status: Acute Assessment and Plan: same as above. (6) DVT prophylaxis Current Visit: No Status: Acute Assessment and Plan: as per orthopedics - Time Spent with Patient Total time spent is greater than 50% in coordination of care (as documented) at patient's floor/unit and/or counseling patient: 25 - 35 minutes Plan of Care Discussed with: patient Internal Medicine: Result - Labs CBC & Chem 7: 08/17/18 05:07 08/17/18 05:07 Labs: Short CBC 08/16/18 08/17/18 Range/Units 10:02 05:07 WBC 8.5 (4.3-11.1) K/mcL Hgb 8.6 L 8.4 L (11.5-15.4) g/dL Hct 25.5 L 25.4 L (35.3-44.9) % Plt Count 142 (140-400) K/mcL BMP 08/17/18 05:07 Sodium 139 Potassium 3.9 Chloride 103 Carbon Dioxide 28 BUN 18 Creatinine 0.55 L Glucose 121 H Calcium 8.7 - VTE Documentation of Mechanical Device: Venous foot pump, device Consult Discharge Plan - Plan Referrals: Alexa Morgan MD [Primary Care Provider] - Prescriptions: Enoxaparin [Lovenox] 30 mg SQ Q12HR 14 Days #28 syringe OxyCODONE Immed Rel [Roxicodone 5 MG] 5 mg PO Q6HR PRN 5 Days #20 tablet PRN Reason: Severe Pain (1) Hypotension Qualifiers: Hypotension type: unspecified hypotension type Qualified Code(s): I95.9 - Hypotension, unspecified (3) Anemia Qualifiers: Anemia type: unspecified type Qualified Code(s): D64.9 - Anemia, unspecified (4) Gout Qualifiers: Gout site: unspecified site Gout etiology: unspecified cause Chronicity: chronic Presence of tophus: without tophus Qualified Code(s): M1A.9XX0 - Chronic gout, unspecified, without tophus (tophi)
--- NOTE | 2018-08-17 12:30 | Event Note ---
Date of Encounter: 08/17/18 Time of Encounter: 10:20 PCR- POD#3 Right Total Hip Replacment robotic-assisted [arthritis] 08/14/18 PCR - Patient seen at bedside. Patient's spouse and daughter at bedside. Patient resting comfortably in chair. Patient states she is in pain and she wants to be pain free. A&Ox3 Dressing and incision c/d/i Patient with exquisite right calf tenderness with swelling noted to ankle and posterior distal leg. 1+ pitting edema in this area. No erythema, or warmth. Neurovascularly intact b/l LE. Labwork, vitals, and medications reviewed. Intermittent hypotension with borderline tachycardia. Hospitalist following along. H/H 8.4/25.4 stable from yesterday Concern for autonomic dysfunction vs acute blood loss anemia as cause of intermittent hypotension and tachycardia. Patient with history of this pattern after her recent surgery in 02/2018 though more profound during present admission. Pain control: Adequate though patient admits she has low pain tolerance. Ofirmev appears to be providing significant relief in combination with patient's opioid administration. Patient states she has not be getting pain medication secondary to her blood pressure. Participating in therapy. All questions and concerns addressed. Educated on use of incentive spirometer, ambulation, and hydration. Patient educated on post-operative restrictions and care. Addressed: With patient's preoperative episode of SVT, anemia, and hypotension requiring holding many of her medications as well as her background medical history - hospitalist team assisting in medical management - their input is greatly appreciated. *Stat Doppler to r/o DVT as patient has new onset right calf pain with swelling* Patient course and disposition discussed with Dr. Jameson D/C plan: Inpt rehab - converted to inpatient status on POD#0 - awaiting insurance auth for [facility] - possible discharge today pending medical optimization and doppler results
[2018-08-18] MEDS ORDERED: *HR* Metoprolol 5 MG/5 ML VIAL IVP ONE (05:08)
[2018-08-18] MEDS: *HR* Enoxaparin 30 MG/0.3 ML SYRINGE SQ SCH ×2 (05:14→16:46)
--- NOTE | 2018-08-18 05:14 | Event Note ---
Date of Encounter: 08/18/18 Time of Encounter: 05:[address] Jameson for concerns of SVT. I saw patient and she appears to be in Atrial Fib/RVR. She had her evening dose of Lopressor held due to low BP. Currently, BP is 105/63. HR 140-150's and irregularly irregular. I ordered Lopressor 5 mg IV one time now, STAT BMP and magnesium, and will reassess/monitor on telemetry.
[2018-08-18] MEDS: traMADol 50 MG TABLET PO PRN ×2 (05:31→11:54)
[2018-08-18 05:34] LABS: Hematocrit 25.5 % (35.3-44.9); Hemoglobin 8.4 g/dL (11.5-15.4)
[2018-08-18 05:56] LABS: BUN/Creatinine Ratio 36 (6-26); Blood Urea Nitrogen 24 mg/dL (8-23); Calcium 9.1 mg/dL (8.6-10.3); Carbon Dioxide 26 mEq/L (23-29); Chloride 99 mEq/L (98-107); Glucose 109 mg/dL (70-105); Osmolality,Calculated 279 (280-300); Sodium 132 mEq/L (136-145); eGFR For African Americans > 60 (> 60); eGFR For Non-African Americans > 60 (> 60)
[2018-08-18] MEDS: Cholecalciferol (D-3) 1,000 UNIT TABLET PO SCH (09:19)
[2018-08-18] MEDS: Ascorbic Acid 500 MG TABLET PO SCH ×2 (09:21→16:46)
[2018-08-18] MEDS: FLUoxetine HCl 10 MG CAPSULE PO SCH (09:21)
[2018-08-18] MEDS: Diltiazem CD (24hr) 120 MG CAPSULE PO SCH (09:22)
[2018-08-18] MEDS: Magnesium Oxide 400 MG TABLET PO SCH (09:22)
[2018-08-18] MEDS: Letrozole 2.5 MG TABLET PO SCH (09:22)
[2018-08-18] MEDS: Multivit/Ca/Min/Fe/FA 1 TAB TABLET PO SCH (09:22)
[2018-08-18] MEDS: Gabapentin 300 MG CAPSULE PO SCH (09:22)
[2018-08-18] MEDS: *HR* OxyCODONE Immed Rel 5 MG TABLET PO PRN ×3 (09:26→17:46)
--- NOTE | 2018-08-18 09:48 | Electrocardiograph Report ---
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
--- NOTE | 2018-08-18 10:39 | Internal Med Progress Note ---
Hospitalist Progress Note - Encounter Date of Encounter: 08/18/18 Time of Encounter: 08:00 - Subjective Interval History: Patient was seen and examined at bedside. Has no complaints. Denies chest pain or shortness of breath or palpitations. His wondering about her transfer to [facility]. All questions answered. Pain is controlled. Tolerating by mouth diet. - Exam Vitals: Temp Pulse Resp BP Pulse Ox 98.4 F 89 17 101/70 94 08/18/18 06:55 08/18/18 06:55 08/18/18 06:55 08/18/18 06:55 08/18/18 06:55 Exam: PHYSICAL EXAMINATION: GENERAL APPEARANCE: The patient is alert, oriented and in no acute distress. HEENT: Head is normocephalic. The sinuses are nontender. Pupils are equal and reactive. NECK: Supple without lymphadenopathy. HEART: Regular rate and rhythm. s1 and s2 LUNGS: No crackles or wheezes are heard. ABDOMEN: Soft, nontender, nondistended with good bowel sounds heard. Inguinal area is normal. EXTREMITIES: right hip post-surgical change, has ecchymosis don to the knee , dressing is clean dry and intact NEUROLOGICAL: Gross nonfocal. SKIN: Warm and dry without any rash. - Assessment and Plan (1) Hypotension Current Visit: Yes Status: Acute Assessment and Plan: Intermittent hypotension, mild, with sbp around 80-90. This could be associated recent blood loss during surgery in addition to pain medications . BP medications were recently adjusted Doubt infectious etiology ( no fever, no leukocytosis, BCx NGTD) BP is controlled now with BB and CCB, will hold off of HCTZ and lisinopril for now as she is also on pain medications which can result in hypotension along with acute on chronci anemia post op. continue to monitor vitals closely (2) Tachycardia Current Visit: Yes Status: Acute Assessment and Plan: ECG showed sinus tachycardia, she has hx of SVT. On 08/18 had SVT on telemetry, EKG performed with SUPRAVENTRICULAR TACHYCARDIA magnesium and potassium WNL As per nursing staff beta shayy were held due to borderline blood pressures overnight. continue with home BB and CCB - nursing staff instructed to provide patient with medication as long as systolic blood pressure is above 90 pain control as per orthopedics Cardiology consulted DVT study negative TTE: Impressions: LVEF 65%. Indeterminate diastolic function. Normal right ventricular structure and function. Mild mitral regurgitation. No pulmonary hypertension. Dilated proximal ascending thoracic aorta, 4.[address] imaging. (3) Anemia Current Visit: No Status: Chronic Assessment and Plan: Blood loss secondary to surgery, H/H stable, continue monitoring. (4) Status post total hip replacement, right Current Visit: Yes Status: Acute Assessment and Plan: Right Total Hip Replacement robotic-assisted [arthritis] 08/14/18 management as per orthopedics DVT study negative (5) Gout Current Visit: No Status: Chronic Assessment and Plan: continue home meds. (6) PSVT (paroxysmal supraventricular tachycardia) Current Visit: No Status: Acute Assessment and Plan: ad an episode yesterday ( BB were held by nursing staff) plan same as above. (7) DVT prophylaxis Current Visit: No Status: Acute Assessment and Plan: as per orthopedics - Time Spent with Patient Total time spent is greater than 50% in coordination of care (as documented) at patient's floor/unit and/or counseling patient: Internal Medicine: Result - Labs CBC & Chem 7: 08/18/18 05:19 08/18/18 05:19 Labs: Short CBC 08/18/18 Range/Units 05:19 Hgb 8.4 L (11.5-15.4) g/dL Hct 25.5 L (35.3-44.9) % BMP 08/18/18 05:19 Sodium 132 L Potassium 4.0 Chloride 99 Carbon Dioxide 26 BUN 24 H Creatinine 0.66 Glucose 109 H Calcium 9.1 - VTE Documentation of Mechanical Device: Venous foot pump, device Consult Discharge Plan - Plan Referrals: Alexa Morgan MD [Primary Care Provider] - Prescriptions: Enoxaparin [Lovenox] 30 mg SQ Q12HR 14 Days #28 syringe OxyCODONE Immed Rel [Roxicodone 5 MG] 5 mg PO Q6HR PRN 5 Days #20 tablet PRN Reason: Severe Pain (1) Hypotension Qualifiers: Hypotension type: unspecified hypotension type Qualified Code(s): I95.9 - Hypotension, unspecified (3) Anemia Qualifiers: Anemia type: unspecified type Qualified Code(s): D64.9 - Anemia, unspecified (5) Gout Qualifiers: Gout site: unspecified site Gout etiology: unspecified cause Chronicity: chronic Presence of tophus: without tophus Qualified Code(s): M1A.9XX0 - Chronic gout, unspecified, without tophus (tophi)
--- NOTE | 2018-08-18 13:35 | Cardiology Consult Note ---
<Steph Whittington N - Last Filed: 08/18/18 14:23> Date of Encounter: 08/18/18 Time of Encounter: 13:15 Assessment and Plan (1) PSVT (paroxysmal supraventricular tachycardia) Status: Acute History of paroxysmal supraventricular tachycardia. Suspect the episode early th is morning was secondary to medication hold. Patient denies any chest pain, shortness of breath, palpitations, dizziness, or lightheadedness. She states that she was sleeping last night when this episode of SVT occurred, and was awakened by staff members entering her room to check on her. She does report some mild chest pressure; however, this resolved once her heart rate was under better control. She currently follows with Dr. Jacques in cardiology, and appears to be doing well with home medications of cardizem CD 120mg and toprol XL 25mg daily. She denies experiencing any palpitations or arrhythmias since being on this medication regimen. Recommend obtaining limited echocardiogram to evaluate for any new changes since prior study in February of this year. Continue cardizem CD 120mg daily. Stop metoprolol BID after today's PM dose; start toprol XL 25mg daily tomorrow morning. (2) HTN (hypertension) Status: Chronic History of hypertension, with home medications of toprol XL 25mg and zestoril/HCTZ 10-12.5mg. Agree with holding zestoril/HCTZ at this time due to recent hypotension and continued borderline BP. Qualifiers: Hypertension type: essential hypertension Qualified Code(s): I10 - Essential (primary) hypertension Discussion w patient/family: The assessment and plan as outlined above was discussed with the patient and/or family members who expressed understanding and agreement. All questions were answered. Thank you for involving us in the care of your patient. Please call with any questions. History of Present Illness Consult date: 08/18/18 Requesting physician: Tavia West Consult reason: Tachyarrhythmia History of present illness: Ms. Lazo is a 73 year old female with a history of invasive ductal carcinoma o f the left breast, HTN, HLD, osteoporosis, and paroxysmal SVT. She underwent total joint replacement of the right hip on 08/14/2018, after which she developed intermittent hypotension and tachycardia. Initial suspicion was for acute blood loss anemia, as hemoglobin was noted at 8.4, down from 10.0 p reoperatively; however, patient does have a history of paroxysmal SVT, with home medications of cardizem CD 120mg and toprol XL 25mg daily. Patient was noted to have supraventricular tachycardia overnight, with HR 157; per review of MAR, patient's PM dose of metoprolol was held last night due to systolic BP of 100. Cardiology consult requested by hospitalist team for recommendations. Previous cardiac testing: * Regadenoson stress test 07/26/2018: Perfusion imaging negative for ischemia or infarct. Pharmacologic stress ECG negative for ischemia at level of heart rate achieved. Gated EF >70%. * Echocardiogram 02/27/2018: LVEF 65%. Indeterminate diastolic function. Normal right ventricular structure and function. Mild mitral regurgitation. No pulmonary hypertension. Dilated proximal ascending thoracic aorta, 4.0 cm. Past Med Surg Social Fam HX - Past Medical History Medical history: asthma, cancer, GERD, hyperlipidemia, hypertension, osteoporosis, other Additional medical history: breast cancer,Barretts esophagus,artificial joints,anemia,invasive ductal carcinoma of left breast Psychiatric history: anxiety, depression - Past Surgical History Surgical History: appendectomy, breast surgery, knee replacement, orthopedic, other, other Additional surgical history: right knee,EGD,right arthroscopic knee,right knee replacement,vein stripping,colonoscopy,paraesophageal hernia repair,left breast biopsy,left lumpectomy with one month radiation. tubal ligation. hiatal hernia - Social History Smoking Status: Never smoker Smokeless Tobacco Status: No Alcohol use: none Drug use: none - Family History Mother Living Status: Hx Family Cardiac Disorders: No Hx Family Respiratory Disorders: No Hx Family Cancer: Yes (Throat) Hx Family GI Disorders: No Hx Family Endocrine Disorder: No Hx Family Neuromuscular Disorders: No Hx Family Neurologic Disorders: No Hx Family HEENT Disorders: No Hx Family Autoimmune Disorders: No Brother Hx Family Cancer: Yes (head/neck ca) Medications and Allergies Allopurinol [Zyloprim 300 MG] 300 mg PO DAILY 03/27/15 [History] Gabapentin [Neurontin] 300 tab PO BID 03/27/15 [History] Omeprazole [PriLOSEC] 20 mg PO DAILY 03/27/15 [History] FLUoxetine HCl [Fluoxetine HCl] 10 mg PO DAILY 02/20/18 [History] Calcium Carbonate [Calcium] 500 mg PO DAILY 03/24/18 [History] Atorvastatin [Lipitor] 40 mg PO HS 06/19/18 [History] Letrozole [Femara] 2.5 mg PO DAILY 06/19/18 [History] Diltiazem CD (24hr) [Cardizem CD] 120 mg PO DAILY 07/06/18 [History] Albuterol Sulfate [Albuterol Inhaler] 2 puff IH Q4HR PRN 08/14/18 [History] Cholecalciferol (D-3) [Vitamin D] 5,000 unit PO DAILY 08/14/18 [History] Lisinopril/Hydrochlorothiazide [Zestoretic 10-12.5 mg Tablet] 1 tab PO DAILY 08/14/18 [History] Magnesium Oxide [Magnesium] 400 mg PO DAILY 08/14/18 [History] Metoprolol XL (24 HR) Succ [Toprol Xl] 25 mg PO DAILY 08/14/18 [History] Enoxaparin [Lovenox] 30 mg SQ Q12HR 14 Days #28 syringe 08/16/18 [Rx] Ferrous Sulfate 325 mg PO BIDWM tablet 08/16/18 [Rx] OxyCODONE Immed Rel [Roxicodone 5 MG] 5 mg PO Q4HR PRN 08/18/18 [History] Tramadol HCl [Ultram] 1 tab PO BID PRN 08/18/18 [History] Allergy/AdvReac Type Severity Reaction Status Date / Time No Known Allergies Allergy Verified 08/14/18 07:05 All Systems Review: The remainder of the systems were reviewed and are negative - Cardiovascular Cardiovascular: irregular heart rhythm, leg edema (right lower extremity), no chest pain at rest, no chest pain with exertion, no dyspnea on exertion, no radiating jaw, neck or arm pain, no orthopnea, no palpitations - Respiratory Respiratory: no dyspnea Physical Examination Vital Signs, Last 4 Hours Temp Pulse Resp BP Pulse Ox 08/18/18 11:20 99.6 F 98 18 109/73 94 General: Conversant, No Apparent Distress HEENT: Atraumatic, Normocephaly, Mucus Membranes Moist Neck: No JVD, Normal carotid pulses Cardiac: Reg Rate and Rhythm, Normal S1 and S2, No Murmur Lungs: Normal Breath Sounds, No Wheeze, Rales, Rhonchi Neuro: Alert and responsive, No focal deficits noted Abdomen: Soft, Non-Tender Skin: No rashes noted on visualized skin Musculoskeletal: No Chest Wall Tenderness Extremities: No Clubbing, No Cyanosis, Normal Pulses, Other (1+ right LE edema; patient states it is chronic and unchanged from baseline) Results 08/18/18 05:19 08/18/18 05:19 Lab Results 08/18/18 08/18/18 08/18/18 05:19 05:19 05:19 Hgb 8.4 L Hct 25.5 L Sodium 132 L Potassium 4.0 Chloride 99 Carbon Dioxide 26 BUN 24 H Creatinine 0.66 Glucose 109 H Calcium 9.1 Magnesium 1.9 Consult Discharge Plan - Plan Additional Instructions: Discharge Instructions: Total Hip Replacement Please call [facility] ([phone]), your Primary Care Physician, or report to the Emergency Room if you have any of the following symptoms: Nausea, vomiting, fever greater that 101.5, swelling, chest pain, shortness of breath, increased pain/redness/drainage/odor for your incision site, numbness/tingling, or any other concerning symptoms. ACTIVITY:Weight-bearing as tolerated for 8 weeks with hip dislocation precautions that physical therapy taught you. You may progress as tolerated under the guidance of your physical therapist. You do not need to sleep with a pillow between your legs. You can also seep on the operative side or on your stomach. Incentive Spirometer 10 times an hour. MEDICATIONS: Upon discharge resume your home medications. Take all the medications as prescribed. Take a stool softener if taking narcotic pain medications. Stool softeners are only effective if you drink enough fluids. Drink 6-8 glass of water or fluids a day, unless this is not allowed for another health problem. Despite using stool softeners, if you haven't had a bowel movement in 3 days, please switch to a gentle laxative. Gentle laxatives are sold over the counter. You should have a bowel movement within 24 hours, if not call the office. You will be discharged from the hospital with a prescription for pain medication. You are encouraged to decrease the use of narcotic pain medication as tolerated. Should you require a refill, please call the office. [facility] prescribes narcotic pain medication for only 4-6 weeks after surgery. If you require pain medication beyond this time period, you may be referred to your Primary Care Physician or to the Pain Clinic for further evaluation. Plan ahead for refills on pain medication as many narcotics either need to be picked up at the office or mailed. It is best to call 48-72 hours in advance of needing a prescription refill so you don't run out of medication. To help control the post-operative pain, you may take NSAIDs (Aleve,Advil, Motrin, ibuprofen, naprosyn) or Tylenol as prescribed on the bottle in addition to the pain medication. ANTICOAGULATION (blood thinners): Continue your Aspirin, Lovenox or Coumadin as prescribed to help prevent a blood clot in the leg or in the lungs. As long as your incision remains dry and you tolerate the NSAIDs (Aleve, Advil, Motrin, Ibuprofen, Naprosyn), it is OK to use the NSAIDS while you are taking your anticoagulation medication. Should your incision start to drain, stop the NSAID and contact our office. Common symptoms of blood clot in the legs include: localized pain, swelling, calf tenderness, redness or discoloration of the skin. Blood clot in the lung symptoms include: shortness of breath, rapid pulse, sweating, and chest pain that worsens with deep breathing, coughing up blood, lightheadedness, feelings of anxiety. If you experience any of these symptoms notify your physician immediately, go to the emergency room, or if having trouble breathing, call 911. WOUND CARE: Leave the dressing on for 7 to 10days. You may change the dressing if it is saturated greater than 50%. Do not get the dressing wet at anytime. Wash your hands with antibacterial soap, rinse and dry prior to any wound care. If you have tori the visiting nurse or rehab facility can remove the stapes 10-14 days after surgery and place steri-strips across the wound. Leave the steri-strips in place until they fall off on their own. You may let water from the shower run on top of the steri-strips. If you do not have a visiting nurse or rehab facility, you will need to return to the office at 10-14 days for the tori to be removed. If you have itching or redness around the dressing call the office. FOLLOW-UP: Please follow up with your surgeon in the orthopedic clinic in 6 weeks from the day of surgery. If you have tori that need to be removed, you will need to come back to the office in 10-14 days from the day of surgery. Referrals: Alexa Morgan MD [Primary Care Provider] - Prescriptions: Enoxaparin [Lovenox] 30 mg SQ Q12HR 14 Days #28 syringe <Charlie Santiago A - Last Filed: 08/19/18 22:00> Date of Encounter: 08/19/18 - Attending Attestation I have personally performed a face to face evaluation on this patient. I have reviewed and agree with the documented findings and care plan as documented by the resident. History and Exam by me shows: 73 y/o F with past history of PSVT complaining of palpitations after her AV camilla blocking agents were held post op for hypotension AAOX3 in NAD at the bedside Hemodynamically stable Cardiopulmonary exam revealed S1, S2, no murmur; clear lungs Rhythm reviewed - PSVT shaan MESSER. Impression/plan: PSVT - restart metoprolol succinate 25mg daily and cardizem 120mg daily. Obtain echo to document EF Charlie Bey MD FACC Assessment and Plan Discussion w patient/family: The assessment and plan as outlined above was discussed with the patient and/or family members who expressed understanding and agreement. All questions were answered. Thank you for involving us in the care of your patient. Please call with any questions. History of Present Illness History of present illness: Ms. Lazo is a 73 year old female All Systems Review: The remainder of the systems were reviewed and are negative Results 08/18/18 05:19 08/18/18 05:19
[2018-08-18 16:03] VITALS: BP 102/60
--- NOTE | 2018-08-19 07:43 | Orthopedics Progress Note ---
Date of Encounter: 08/18/18 Time of Encounter: 08:20 - Assessment and Plan (1) Osteoarthritis of right hip Status: Chronic Qualifiers: Osteoarthritis type: unspecified Qualified Code(s): M16.11 - Unilateral primary osteoarthritis, right hip (2) Status post total hip replacement, right Status: Acute (3) Barretts esophagus Status: Chronic Qualifiers: Hastings's esophagus type: with dysplasia of unspecified degree Qualified Code(s): K22.719 - Hastings's esophagus with dysplasia, unspecified; K22.71 - Hastings's esophagus with dysplasia (4) Gout Status: Chronic Qualifiers: Gout site: unspecified site Gout etiology: unspecified cause Chronicity: unspecified Qualified Code(s): M10.9 - Gout, unspecified (5) H/O paroxysmal supraventricular tachycardia Status: Chronic (6) HLD (hyperlipidemia) Status: Chronic Qualifiers: Hyperlipidemia type: unspecified Qualified Code(s): E78.5 - Hyperlipidemia, unspecified (7) HTN (hypertension) Status: Chronic Qualifiers: Hypertension type: unspecified Qualified Code(s): I10 - Essential (primary) hypertension (8) Invasive ductal carcinoma of breast Status: Chronic Qualifiers: Laterality: left Qualified Code(s): C50.912 - Malignant neoplasm of unspecified site of left female breast (9) Obesity Status: Chronic Qualifiers: Obesity type: unspecified obesity type Obesity classification: unspecified obesity classification Serious obesity comorbidity presence: unspecified whether serious comorbidity present Qualified Code(s): E66.9 - Obesity, unspecified (10) Osteoporosis Status: Chronic Qualifiers: Osteoporosis type: other Presence of current pathological fracture: unspecified Qualified Code(s): M81.8 - Other osteoporosis without current pathological fracture (11) Acute blood loss anemia Status: Acute Subjective Principal diagnosis: s/p right total hip Interval history: POD#4 Right Total Hip Replacment robotic-assisted [arthritis] 08/14/18 Patient seen at bedside. Patient sitting in chair resting comfortably in chair. Patient states she feels better today, but is still in pain. A&Ox3 Dressing and incision c/d/i Patient with improved right calf tenderness with swelling noted to ankle and posterior distal leg. 1+ pitting edema in this area. No erythema, or warmth. Neurovascularly intact b/l LE. Labwork, vitals, and medications reviewed. Intermittent hypotension with borderline tachycardia. Hospitalist following along. H/H 8.4/25.5 stable from yesterday with reduced episodes of acute hypotension Concern for autonomic dysfunction vs acute blood loss anemia as cause of intermittent hypotension and tachycardia. Patient with history of this pattern after her recent surgery in 02/2018 though more profound during present admission. Pain control: Adequate though patient admits she has low pain tolerance. Ofirmev discontinued and patient converted to oral medications. Tolerating well. Participating in therapy. All questions and concerns addressed. Educated on use of incentive spirometer, ambulation, and hydration. Patient educated on post-operative restrictions and care. Addressed: Doppler 08/17 was negative for vte Patient had another episode of SVT this morning - Hospitalist aware. With patient's preoperative episode of SVT, anemia, and hypotension requiring holding many of her medications as well as her background medical history - hospitalist team assisting in medical management - their input is greatly appreciated. Patient course and disposition discussed with Dr. Jameson D/C plan: Inpt rehab - converted to inpatient status on POD#0 - Auth obtained for [facility] - possible discharge today pending medical optimization Objective Vital signs: Vital Signs Temp Pulse Resp BP Pulse Ox 08/18/18 16:03 99.4 F 95 16 102/60 93 08/18/18 11:20 99.6 F 98 18 109/73 94 Intake and Output 08/18/18 08/18/18 08/19/18 15:59 23:59 07:59 Intake Total 540 / 740 Balance 540 / 740 Intake: Oral 540 / 740 Other: Meal Breakfast Percent of Meal Consumed 100% - Labs CBC & BMP: 08/18/18 05:19 08/18/18 05:19 Labs: Abnormal lab results RBC 2.53 M/mcL (3.82-4.97) L 08/17/18 05:07 Hgb 8.4 g/dL (11.5-15.4) L 08/18/18 05:19 Hct 25.5 % (35.3-44.9) L 08/18/18 05:19 MCV 100.4 fL (83.0-100.0) H 08/17/18 05:07 RDW 14.7 % (11.5-14.5) H 08/17/18 05:07 1.5 K/mcL (0.0-1.3) H 08/15/18 07:14 Sodium 132 mEq/L (136-145) L 08/18/18 05:19 BUN 24 mg/dL (8-23) H 08/18/18 05:19 0.55 mg/dL (0.60-1.20) L 08/17/18 05:07 36 (6-26) H 08/18/18 05:19 Glucose 109 mg/dL (70-105) H 08/18/18 05:19 279 (280-300) L 08/18/18 05:19 - VTE Documentation of Mechanical Device: Venous foot pump, device Consult Discharge Plan - Plan Additional Instructions: Discharge Instructions: Total Hip Replacement Please call [facility] ([phone]), your Primary Care Physician, or report to the Emergency Room if you have any of the following symptoms: Nausea, vomiting, fever greater that 101.5, swelling, chest pain, shortness of breath, increased pain/redness/drainage/odor for your incision site, numbness/tingling, or any other concerning symptoms. ACTIVITY:Weight-bearing as tolerated for 8 weeks with hip dislocation precautions that physical therapy taught you. You may progress as tolerated under the guidance of your physical therapist. You do not need to sleep with a pillow between your legs. You can also seep on the operative side or on your stomach. Incentive Spirometer 10 times an hour. MEDICATIONS: Upon discharge resume your home medications. Take all the medications as prescribed. Take a stool softener if taking narcotic pain medications. Stool softeners are only effective if you drink enough fluids. Drink 6-8 glass of water or fluids a day, unless this is not allowed for another health problem. Despite using stool softeners, if you haven't had a bowel movement in 3 days, please switch to a gentle laxative. Gentle laxatives are sold over the counter. You should have a bowel movement within 24 hours, if not call the office. You will be discharged from the hospital with a prescription for pain medication. You are encouraged to decrease the use of narcotic pain medication as tolerated. Should you require a refill, please call the office. [facility] prescribes narcotic pain medication for only 4-6 weeks after surgery. If you require pain medication beyond this time period, you may be referred to your Primary Care Physician or to the Pain Clinic for further evaluation. Plan ahead for refills on pain medication as many narcotics either need to be picked up at the office or mailed. It is best to call 48-72 hours in advance of needing a prescription refill so you don't run out of medication. To help control the post-operative pain, you may take NSAIDs (Aleve,Advil, Motrin, ibuprofen, naprosyn) or Tylenol as prescribed on the bottle in addition to the pain medication. ANTICOAGULATION (blood thinners): Continue your Aspirin, Lovenox or Coumadin as prescribed to help prevent a blood clot in the leg or in the lungs. As long as your incision remains dry and you tolerate the NSAIDs (Aleve, Advil, Motrin, Ibuprofen, Naprosyn), it is OK to use the NSAIDS while you are taking your anticoagulation medication. Should your incision start to drain, stop the NSAID and contact our office. Common symptoms of blood clot in the legs include: localized pain, swelling, calf tenderness, redness or discoloration of the skin. Blood clot in the lung symptoms include: shortness of breath, rapid pulse, sweating, and chest pain that worsens with deep breathing, coughing up blood, lightheadedness, feelings of anxiety. If you experience any of these symptoms notify your physician immediately, go to the emergency room, or if having trouble breathing, call 911. WOUND CARE: Leave the dressing on for 7 to 10days. You may change the dressing if it is saturated greater than 50%. Do not get the dressing wet at anytime. Wash your hands with antibacterial soap, rinse and dry prior to any wound care. If you have tori the visiting nurse or rehab facility can remove the stapes 10-14 days after surgery [address] steri-strips across the wound. Leave the steri-strips in place until they fall off on their own. You may let water from the shower run on top of the steri-strips. If you do not have a visiting nurse or rehab facility, you will need to return to the office at 10-14 days for the tori to be removed. If you have itching or redness around the dressing call the office. FOLLOW-UP: Please follow up with your surgeon in the orthopedic clinic in 6 weeks from the day of surgery. If you have tori that need to be removed, you will need to come back to the office in 10-14 days from the day of surgery. Referrals: Alexa Morgan MD [Primary Care Provider] - Prescriptions: Enoxaparin [Lovenox] 30 mg SQ Q12HR 14 Days #28 syringe
[2018-08-19] MEDS ORDERED: Metoprolol XL (24 HR) Succ 25 MG TAB.ER.24H PO SCH (09:00)
== END 2018-08-18 19:00 | DRG 470 ==
LOC: SAMDAY 06:20 → 3NENU 12:03
PROVIDERS: ADMIT Orthopaedic Surgery; ATTEND Orthopaedic Surgery